=== PATIENT | male | born 1960 | race Hispanic/Latino ===

== ENCOUNTER 2018-12-26 11:30 | Inpatient (IN) | payer MEDICAID, OTHER ==
[2018-12-26 11:31] VITALS: BMI 26.5
[2018-12-26 12:37] LABS: BASO % 0.5 % (0.0-2.0); EOS % 1.2 % (0.0-4.0); HEMOGLOBIN 15.6 g/dL (12.0-18.0); LYMPH # 0.1 K/uL (1.0-4.3); LYMPH % 17.1 % (20.0-40.0); MEAN CORPUSCULAR HEMOGLOBIN 31.4 pg (27.0-31.0); MONO % 0.8 % (0.0-10.0); NEUT # 0.6 K/uL (1.8-7.0); NEUT % 80.4 % (50.0-75.0); NRBC % 0.8 % (0.0-2.0); RBC 4.96 Mil/uL (4.40-5.90); RED CELL DISTRIBUTION WIDTH 14.9 % (11.5-14.5)
[2018-12-26 12:45] LABS: MEAN CELL VOLUME 92.2 fL (80.0-94.0); WHITE BLOOD COUNT 0.7 K/uL (4.8-10.8)
[2018-12-26 12:55] LABS: ALBUMIN 4.2 g/dL (3.5-5.0); ALT/SGPT 57 U/L (21-72); AST/SGOT 110 U/L (17-59); BLOOD UREA NITROGEN 20 mg/dL (9-20); CALCIUM 9.7 mg/dl (8.6-10.4); GFR NON-AFRICAN AMERICAN > 60
[2018-12-26 12:58] LABS: VENOUS BLOOD GAS BASE EXCESS 0.6 mmol/L (0.0-2.0); VENOUS BLOOD GAS PCO2 52 mmHg (40-60); VENOUS BLOOD GAS PO2 21 mm/Hg (30-55); VENOUS BLOOD PH 7.33 (7.32-7.43)
[2018-12-26 13:05] LABS: B-TYPE NATRIURETIC PEPTIDE 77.6 pg/mL (0-900)
[2018-12-26 13:05] LABS: SQUAMOUS EPITHIAL 1 /hpf (0-5); URINE BACTERIA OCC (<OCC); URINE BILIRUBIN NEGATIVE (NEGATIVE); URINE BLOOD 1+ (NEGATIVE); URINE CLARITY Clear (Clear); URINE COLOR Yellow (YELLOW); URINE GLUCOSE (UA) NORMAL (Normal); URINE LEUKOCYTE ESTERASE 1+ Leu/uL (Negative); URINE PROTEIN NEGATIVE (NEGATIVE)
[2018-12-26] MEDS ORDERED: Piperacillin/Tazobact 3.375 GM in Sodium Chloride 100 ML IVPB STA (13:06)
[2018-12-26] MEDS ORDERED: Sodium Chloride 0.9% 1,000 ML IV ONE (13:08)
--- NOTE | 2018-12-26 13:12 | RAD ---
HISTORY: Sepsis Patient COMPARISON: Chest x-ray performed 04/06/16 TECHNIQUE: Chest, one view. FINDINGS: LUNGS: Bibasilar atelectasis. No focal consolidation. Please note that chest x-ray has limited sensitivity for the detection of pulmonary masses. PLEURA: No significant pleural effusion identified. No definite pneumothorax . CARDIOVASCULAR: Heart size appears within normal limits. No significant atherosclerotic calcification present. OSSEOUS STRUCTURES: No acute osseous abnormality identified. VISUALIZED UPPER ABDOMEN: Unremarkable. OTHER FINDINGS: None. IMPRESSION: Bibasilar atelectasis.
[2018-12-26] MEDS ORDERED: Piperacillin/Tazobact 3.375 gm 100 ML IVPB ONE (13:16)
[2018-12-26] MEDS ORDERED: Vancomycin 1 GM 1 GM/250 ML BAG IVPB ONE (13:16)
[2018-12-26 13:25] LABS: BARBITURATES, UR NEGATIVE (NEGATIVE); PHENCYCLIDINE, UR NEGATIVE (NEGATIVE)
[2018-12-26 13:54] LABS: BENZODIAZEPINES, UR POSITIVE (NEGATIVE); OPIATES, UR POSITIVE (NEGATIVE)
[2018-12-26] MEDS ORDERED: Sodium Chloride 0.9% 2,000 ML ONE (14:24)
--- NOTE | 2018-12-26 14:38 | C.PDOC ---
History Of Present Illness 58 y/o male brought in by EMS for evaluation of fever and chills. Patient states that he just used a few bags of heroin this morning, and then suddenly became cold. He notes that his left side became very cold. Patient was able to move all extremities. He also began to feel nauseous, and started vomiting in the ED. Patient also complains of pain all over. Rectal temp shows fever. Patient notes he has had a persistent cough since about 1 week ago. Time Seen by Provider: 12/26/18 11:39 Chief Complaint (Nursing): GI Problem History Per: Patient History/Exam Limitations: no limitations Onset/Duration Of Symptoms: Days Current Symptoms Are (Timing): Still Present Past Medical History Reviewed: Historical Data, Nursing Documentation, Vital Signs Vital Signs: Last Vital Signs Temp 102.7 F H 12/26/18 12:30 Pulse 83 12/26/18 14:25 Resp 20 12/26/18 14:25 BP 87/48 L 12/26/18 14:25 Pulse Ox 95 12/26/18 14:25 - Medical History PMH: Back Problems Denies: Diabetes, Hepatitis, HIV, HTN, Seizures, Sexually Transmitted Disease Family History: States: Unknown Family Hx - Social History Hx Alcohol Use: Yes Hx Substance Use: Yes - Immunization History Hx Tetanus Toxoid Vaccination: (unk) Hx Influenza Vaccination: No Hx Pneumococcal Vaccination: (unk) Review Of Systems Except As Marked, All Systems Reviewed And Found Negative. Constitutional: Positive for: Fever, Chills, Other (Body aches) Cardiovascular: Negative for: Chest Pain Respiratory: Positive for: Cough. Negative for: Shortness of Breath Gastrointestinal: Positive for: Nausea, Vomiting, Abdominal Pain. Negative for: Diarrhea Musculoskeletal: Negative for: Neck Pain Neurological: Negative for: Headache, Dizziness Physical Exam - Physical Exam Appears: Other (Appears Ill) Skin: Warm, Dry, Other (Covered in tattoos) Head: Atraumatic, Normacephalic Eye(s): bilateral: Normal Inspection, PERRL, EOMI Nose: Discharge (+ nasal congestion) Oral Mucosa: Moist Throat: Normal, No Erythema, No Exudate Neck: Normal ROM, Supple Chest: Symmetrical Cardiovascular: Rhythm Regular, No Murmur Respiratory: Normal Breath Sounds, No Accessory Muscle Use, No Wheezing, Other (Cough noted) Gastrointestinal/Abdominal: Soft, No Tenderness, No Guarding, No Rebound Extremity: Bilateral: Atraumatic, Normal Color And Temperature, Normal ROM Neurological/Psych: Oriented x3, Normal Speech ED Course And Treatment - Laboratory Results Result Diagrams: 12/28/18 13:26 12/28/18 13:26 Lab Results: pO2 21 mm/Hg (30-55) L 12/26/18 12:55 VBG pH 7.33 (7.32-7.43) 12/26/18 12:55 VBG pCO2 52 mmHg (40-60) 12/26/18 12:55 VBG HCO3 23.6 mmol/L 12/26/18 12:55 VBG Total CO2 29.0 mmol/L (22-28) H 12/26/18 12:55 VBG O2 Sat (Calc) 33.1 % (40-65) L 12/26/18 12:55 VBG Base Excess 0.6 mmol/L (0.0-2.0) 12/26/18 12:55 VBG Potassium 4.5 mmol/L (3.6-5.2) 12/26/18 12:55 Sodium 135.0 mmol/l (132-148) 12/26/18 12:55 Chloride 101.0 mmol/L (98-107) 12/26/18 12:55 Glucose 101 mg/dl (75-110) 12/26/18 12:55 Lactate 3.6 mmol/L (0.7-2.1) H 12/26/18 12:55 D-Dimer, Quantitative 4103 ng/mlDDU (0-243) H 12/26/18 13:41 Troponin I 0.1160 ng/mL (0.00-0.120) 12/26/18 12:30 NT-Pro-B Natriuret Pep 77.6 pg/mL (0-900) 12/26/18 12:30 Total Bilirubin 1.0 mg/dL (0.2-1.3) 12/26/18 12:30 AST 110 U/L (17-59) H 12/26/18 12:30 ALT 57 U/L (21-72) 12/26/18 12:30 Alkaline Phosphatase 220 U/L (38-126) H 12/26/18 12:30 Total Protein 8.3 g/dL (6.3-8.3) 12/26/18 12:30 Albumin 4.2 g/dL (3.5-5.0) 12/26/18 12:30 Globulin 4.1 gm/dL (2.2-3.9) H 12/26/18 12:30 Albumin/Globulin Ratio 1.0 (1.0-2.1) 12/26/18 12:30 Urine Color Yellow (YELLOW) 12/26/18 12:52 Urine Clarity Clear (Clear) 12/26/18 12:52 Urine pH 6.0 (5.0-8.0) 12/26/18 12:52 Ur Specific [place] 1.012 (1.003-1.030) 12/26/18 12:52 Urine Protein Negative mg/dL (NEGATIVE) 12/26/18 12:52 Urine Glucose (UA) Normal mg/dL (Normal) 12/26/18 12:52 Urine Ketones Negative mg/dL (NEGATIVE) 12/26/18 12:52 Urine Blood 1+ (NEGATIVE) H 12/26/18 12:52 Urine Nitrate Negative (NEGATIVE) 12/26/18 12:52 Urine Bilirubin Negative (NEGATIVE) 12/26/18 12:52 Urine Urobilinogen 4.0 mg/dL (0.2-1.0) 12/26/18 12:52 Ur Leukocyte Esterase 1+ Day[place]/uL (Negative) H 12/26/18 12:52 Urine WBC (Auto) 8 /hpf (0-5) H 12/26/18 12:52 Urine RBC (Auto) 7 /hpf (0-3) H 12/26/18 12:52 Ur Squamous Epith Cells 1 /hpf (0-5) 12/26/18 12:52 Urine Bacteria Occ (<OCC) H 12/26/18 12:52 O2 Sat by Pulse Oximetry: 95 Pulse Ox Interpretation: Normal - Other Rad CXR X-Ray: Read By Radiologist Interpretation: Accession No. : [id number]. Patient Name / ID : ELICIA MUIR / [id number]. Exam Date : 12/26/2018 12:41:34 ( Approved ). Study Comment : Sex / Age : M / 58Y. Creator : Anjelica Hernandez MD. Dictator : Anjelica Hernandez MD. Biofuels Production Manager : Instrumentation Tech : Anjelica Hernandez MD. Ap prover2 : Report Date : 12/26/2018 13:09:07. My Comment : . HISTORY: Sepsis Patient. COMPARISON: Chest x-ray performed 04/06/16. TECHNIQUE: Chest, one view. FINDINGS: LUNGS: Bibasilar atelectasis. No focal consolidation. Please note that chest x-ray has limited sensitivity for the detection of pulmonary masses. PLEURA: No significant pleural effusion identified. No definite pneumothorax . CARDIOVASCULAR: Heart size appears within normal limits. No significant atherosclerotic calcification present. OSSEOUS STRUCTURES: No acute osseous abnormality identified. VISUALIZED UPPER ABDOMEN: Unremarkable. OTHER FINDINGS: None. IMPRESSION: Bibasilar atelectasis. Medical Decision Making Medical Decision Making: Impression: Fever, Heroin abuse Initial Plan: - Blood work - VBG - Urinalysis - Urine culture - Blood culture - EKG - Chest x-ray - 975 mg Tylenol Labs reviewed. WBC 0.7k Lactate 3.6 Sepsis protocol initiated. Added orders for IV fluids, Vanco, Zosyn, and Zofran. Also given 30 mg IV Toradol. On re-examination patient has significant RUQ tenderness. Considering US for gall bladder disease. Spoke with net web developer Dr. Barrera, who will evaluate patient in the ED. 14:33 D-dimer elevated, > 4000 Added on CTA chest. Patient given additional liters of IVF hydration. Discussed case with Dr. Rodriguez, will admit patient under his service to the ICU. Dr. Barrera assumed care of the patient at 14:56. Assessment was made that patient is too unstable to travel for ultrasound or CT scan. Patient is persistently hypotensive despite 3L IV fluids. Levophed started. Disposition Discussed With : Jarett Rodriguez - Disposition Disposition: HOSPITALIZED Disposition Time: 14:52 Condition: CRITICAL - Clinical Impression Clinical Impression: Sepsis, Opioid abuse, Leukopenia - Scribe Statement The provider has reviewed the documentation as recorded by the Nickolas Pelayo Provider Attestation: All medical record entries made by the Nickolas were at my direction and personally dictated by me. I have reviewed the chart and agree that the record accurately reflects my personal performance of the history, physical exam, medical decision making, and the department course for this patient. I have also personally directed, reviewed, and agree with the discharge instructions and disposition. Decision To Admit - Pt Status Changed To: Hospital Disposition Of: Inpatient - Admit Certification Admit to Inpatient:: After my assessment, the patient will require hospitalization for at least two midnights. This is because of the severity of symptoms shown, intensity of services needed, and/or the medical risk in this patient being treated as an outpatient. - InPatient: Physician Admission Certification:: critical patient, sepsis, opioid abuse - . Bed Request Type: ICU Admitting Physician: Jarett Rodriguez Patient Diagnosis: Sepsis, Opioid abuse, Leukopenia
[2018-12-26] MEDS ORDERED: Sodium Chloride 0.9% 250 ML IV ONE (14:53)
[2018-12-26 15:23] LABS: VENOUS BLOOD GAS BASE EXCESS -5.2 mmol/L (0.0-2.0); VENOUS BLOOD GAS PCO2 40 mmHg (40-60); VENOUS BLOOD GAS PO2 57 mm/Hg (30-55); VENOUS BLOOD PH 7.32 (7.32-7.43)
[2018-12-26] MEDS ORDERED: Acetaminophen IV 1,000 MG in Premixed IV 1 EA IV ONE (16:34)
[2018-12-26] MEDS ORDERED: Multivitamin (MVI) 10 ML, Thiamine 100 MG, Folic Acid 1 MG in Sodium Chloride 0.9% 1,00... IV ONE ×2 (18:44→19:21)
--- NOTE | 2018-12-26 18:50 | CP.PCM.CON ---
<Elissa Wakefield - Last Filed: 12/26/18 18:32> History of Present Illness - History of Present Illness History of Present Illness: Pt is a 58 y/o male with hx of HIV (questionable), Hep C, ETOH abuser, Active Heroine abuser, Liver Cirrhosis, previously incarcerated brought to ER by sister who reports that she found him at her neighbors house shaking and "looked ill" and minimally responsive. She believes he was shooting up heroine. As per EMS, pt was given Narcan and become more alert. On ED arrival he was complaining of abdominal pain and vomiting. Also complaining of cough. Noted to be septic shock --hypothermic, WBC 0.7, hypotensive unresponsive to fluids and started on levophed. Most of history obtained through sister and mother who are at bedside. They report that he uses heroine often and drinks alcohol regularly often going into withdrawal if he doesn't drink for a while. Past Patient History - Infectious Disease Hx of Infectious Diseases: None - Past Social History Smoking Status: Heavy Smoker > 10 Cigarettes Daily - CARDIAC Hx Hypertension: No - PULMONARY Hx Tuberculosis: No - NEUROLOGICAL Hx Seizures: No - HEMATOLOGICAL/ONCOLOGICAL Hx Human Immunodeficiency Virus (HIV): No - MUSCULOSKELETAL/RHEUMATOLOGICAL Hx Falls: No - GENITOURINARY/GYNECOLOGICAL Hx Sexually Transmitted Disorders: No - PSYCHIATRIC Hx Substance Use: Yes - SURGICAL HISTORY Hx Surgeries: Yes Other/Comment: L eye - ANESTHESIA Hx Anesthesia: No Hx Anesthesia Reactions: No Has any member of the family had a problem w/ anesthesia?: No (as per patient's mother) Meds Allergies/Adverse Reactions: Allergies Allergy/AdvReac Type Severity Reaction Status Date / Time No Known Allergies Allergy Verified 12/26/18 11:44 - Medications Medications: Current Medications Norepinephrine Bitartrate 4 mg (/ Dextrose) 254 mls @ 15.24 mls/hr IV .[id number] PRN; Protocol PRN Reason: TITRATE PER MD ORDER Last Admin: 12/26/18 15:28 Dose: 4 mcg/min, 15.24 mls/hr Physical Exam - Constitutional Appears: Toxic, Older Than Stated Age - Eye Exam Eye Exam: EOMI, PERRL - ENT Exam ENT Exam: Mucous Membranes Dry - Respiratory Exam Respiratory Exam: Clear to Auscultation Bilateral. absent: Rales, Wheezes - Cardiovascular Exam Cardiovascular Exam: Tachycardia, +S1, +S2. absent: Systolic Murmur - GI/Abdominal Exam GI & Abdominal Exam: Normal Bowel Sounds, Soft, Tenderness (RUQ on deep palpation, [place] negative) - Extremities Exam Extremities exam: Positive for: normal capillary refill, pedal pulses present. Negative for: pedal edema - Neurological Exam Neurological exam: Alert (lethargic, responds to name only) - Psychiatric Exam Psychiatric exam: Flat Affect - Skin Skin Exam: Normal Color Results - Vital Signs Recent Vital Signs: Last Vital Signs Temp 102.3 F H 12/26/18 14:45 Pulse 68 12/26/18 17:44 Resp 17 12/26/18 17:44 BP 102/66 12/26/18 17:44 Pulse Ox 97 12/26/18 17:44 - Labs Result Diagrams: 12/26/18 12:30 12/26/18 12:30 Labs: Laboratory Results - last 24 hr 12/26/18 12/26/18 12/26/18 12:30 12:30 12:52 WBC 0.7 L* D RBC 4.96 Hgb 15.6 Hct 45.7 MCV 92.2 D MCH 31.4 H MCHC 34.0 RDW 14.9 H Plt Count 80 L D MPV 8.0 Neut % (Auto) 80.4 H Lymph % (Auto) 17.1 L Bureau % (Auto) 0.8 Eos % (Auto) 1.2 Baso % (Auto) 0.5 Neut # (Auto) 0.6 L Lymph # (Auto) 0.1 L Bureau # (Auto) 0.0 Eos # (Auto) 0.0 Baso # (Auto) 0.0 Differential Comment Smear Path Review D-Dimer, Quantitative pO2 VBG pH VBG pCO2 VBG HCO3 VBG Total CO2 VBG O2 Sat (Calc) VBG Base Excess VBG Potassium Glucose Lactate Sodium 136 Potassium 4.2 Chloride 99 Carbon Dioxide 22 Anion Gap 19 BUN 20 Creatinine 0.7 L Est GFR ( Amer) > 60 Est GFR (Non-Af Amer) > 60 Random Glucose 102 Calcium 9.7 Phosphorus 2.9 Magnesium 1.7 Total Bilirubin 1.0 AST 110 H ALT 57 Alkaline Phosphatase 220 H Troponin I 0.1160 NT-Pro-B Natriuret Pep 77.6 Total Protein 8.3 Albumin 4.2 Globulin 4.1 H Albumin/Globulin Ratio 1.0 Venous Blood Potassium Urine Color Urine Clarity Urine pH Ur Specific [place] Urine Protein Urine Glucose (UA) Urine Ketones Urine Blood Urine Nitrate Urine Bilirubin Urine Urobilinogen Ur Leukocyte Esterase Urine WBC (Auto) Urine RBC (Auto) Ur Squamous Epith Cells Urine Bacteria Urine Opiates Screen Positive H Urine Methadone Screen Negative Ur Barbiturates Screen Negative Ur Phencyclidine Scrn Negative Ur Amphetamines Screen Negative U Benzodiazepines Scrn Positive U Oth Cocaine Metabols Negative U Cannabinoids Screen Positive H Alcohol, Quantitative < 10 12/26/18 12/26/18 12/26/18 12:52 12:55 13:41 WBC RBC Hgb Hct MCV MCH MCHC RDW Plt Count MPV Neut % (Auto) Lymph % (Auto) Bureau % (Auto) Eos % (Auto) Baso % (Auto) Neut # (Auto) Lymph # (Auto) Bureau # (Auto) Eos # (Auto) Baso # (Auto) Differential Comment Smear Path Review D-Dimer, Quantitative 4103 H pO2 21 L VBG pH 7.33 VBG pCO2 52 VBG HCO3 23.6 VBG Total CO2 29.0 H VBG O2 Sat (Calc) 33.1 L VBG Base Excess 0.6 VBG Potassium 4.5 Glucose 101 Lactate 3.6 H Sodium 135.0 Potassium Chloride 101.0 Carbon Dioxide Anion Gap BUN Creatinine Est GFR ( Amer) Est GFR (Non-Af Amer) Random Glucose Calcium Phosphorus Magnesium Total Bilirubin AST ALT Alkaline Phosphatase Troponin I NT-Pro-B Natriuret Pep Total Protein Albumin Globulin Albumin/Globulin Ratio Venous Blood Potassium 4.5 Urine Color Yellow Urine Clarity Clear Urine pH 6.0 Ur Specific [place] 1.012 Urine Protein Negative Urine Glucose (UA) Normal Urine Ketones Negative Urine Blood 1+ H Urine Nitrate Negative Urine Bilirubin Negative Urine Urobilinogen 4.0 Ur Leukocyte Esterase 1+ H Urine WBC (Auto) 8 H Urine RBC (Auto) 7 H Ur Squamous Epith Cells 1 Urine Bacteria Occ H Urine Opiates Screen Urine Methadone Screen Ur Barbiturates Screen Ur Phencyclidine Scrn Ur Amphetamines Screen U Benzodiazepines Scrn U Oth Cocaine Metabols U Cannabinoids Screen Alcohol, Quantitative 12/26/18 15:20 WBC RBC Hgb Hct MCV MCH MCHC RDW Plt Count MPV Neut % (Auto) Lymph % (Auto) Bureau % (Auto) Eos % (Auto) Baso % (Auto) Neut # (Auto) Lymph # (Auto) Bureau # (Auto) Eos # (Auto) Baso # (Auto) Differential Comment Smear Path Review D-Dimer, Quantitative pO2 57 H VBG pH 7.32 VBG pCO2 40 VBG HCO3 20.6 VBG Total CO2 21.8 L VBG O2 Sat (Calc) 91.1 H VBG Base Excess -5.2 L VBG Potassium 2.7 L Glucose 94 Lactate 1.8 Sodium 136.0 Potassium Chloride 108.0 H Carbon Dioxide Anion Gap BUN Creatinine Est GFR ( Amer) Est GFR (Non-Af Amer) Random Glucose Calcium Phosphorus Magnesium Total Bilirubin AST ALT Alkaline Phosphatase Troponin I NT-Pro-B Natriuret Pep Total Protein Albumin Globulin Albumin/Globulin Ratio Venous Blood Potassium 2.7 L Urine Color Urine Clarity Urine pH Ur Specific [place] Urine Protein Urine Glucose (UA) Urine Ketones Urine Blood Urine Nitrate Urine Bilirubin Urine Urobilinogen Ur Leukocyte Esterase Urine WBC (Auto) Urine RBC (Auto) Ur Squamous Epith Cells Urine Bacteria Urine Opiates Screen Urine Methadone Screen Ur Barbiturates Screen Ur Phencyclidine Scrn Ur Amphetamines Screen U Benzodiazepines Scrn U Oth Cocaine Metabols U Cannabinoids Screen Alcohol, Quantitative Assessment & Plan - Assessment and Plan (Free Text) Assessment: Pt is a 58 y/o male with hx of HIV (questionable), Hep C, ETOH abuser, Active Heroine abuser, Liver Cirrhosis, previously incarcerated brought to ER by sister who reports that she found him at her neighbors house shaking and "looked ill" and minimally responsive. She believes he was shooting up heroine. As per EMS, pt was given Narcan and become more alert. On ED arrival he was complaining of abdominal pain and vomiting. Also complaining of cough. Noted to be septic shock , Code Sepsis initiated--hypothermic, WBC 0.7, hypotensive unresponsive to fluids and started on levophed. Most of history obtained through sister and mother who are at bedside. They report that he uses heroine often and drinks alcohol regularly often going into withdrawal if he doesn't drink for a while. Neuro - Alert, oriented to name only - Likely opiod overdose vs metabolic encephalopathy - Neuro checks q2h - Hx of ETOH abuse, CIWA 0 on presentation. Watch ffor withdrawals DT - Banana bag Cardio - Septic shock, BP in 70's in ED, currently on Levophed. Wean as tolerated, maintain map>65 - Cardiac monitoring - No known cardiac history - D Dimer elevated; CT [place] pending GI - Liver Cirrhosis - ASt 110 ALT 257, Alcoholic pattern - Abdominal US ordered - Sister states pt has liver mass? Renal - BUN/Crea stable - Monitor UP Heme - H/H stbale - Platelets 80 ID - Neutropenic fever - Lactate 3.6 - WBC 0.7 (ANC 500) - C/W Vanco Zosyn - F/U Bcx, Ucx - HIV, Hep C sent Lines: Right femoral placed ton 12/[address] Carolynn Wakefield, PGY2 <Corbin Barrera - Last Filed: 12/26/18 19:23> Meds - Medications Medications: Current Medications Norepinephrine Bitartrate 4 mg (/ Dextrose) 254 mls @ 15.24 mls/hr IV .[id number] PRN; Protocol PRN Reason: TITRATE PER MD ORDER Last Admin: 12/26/18 15:28 Dose: 4 mcg/min, 15.24 mls/hr Piperacillin Sod/Tazobactam Sod (Zosyn 3.375 Gm Iv Premix) 3.375 gm in 50 mls @ 100 mls/hr IVPB Q8H SABI; Protocol Vancomycin/Sodium Chloride (Vancomycin 1 Gm/Ns 200 Ml) 1 gm in 200 mls @ 133 mls/hr IVPB Q12H SABI; Protocol Stop: 01/01/19 09:01 Pantoprazole Sodium (Protonix Inj) 40 mg IVP DAILY SABI Results - Vital Signs Recent Vital Signs: Last Vital Signs Temp 102.3 F H 12/26/18 14:45 Pulse 65 12/26/18 18:37 Resp 19 12/26/18 18:37 BP 101/67 12/26/18 18:37 Pulse Ox 96 12/26/18 18:37 - Labs Result Diagrams: 12/26/18 12:30 12/26/18 12:30 Labs: Laboratory Results - last 24 hr 12/26/18 12/26/18 12/26/18 12:30 12:30 12:52 WBC 0.7 L* D RBC 4.96 Hgb 15.6 Hct 45.7 MCV 92.2 D MCH 31.4 H MCHC 34.0 RDW 14.9 H Plt Count 80 L D MPV 8.0 Neut % (Auto) 80.4 H Lymph % (Auto) 17.1 L Bureau % (Auto) 0.8 Eos % (Auto) 1.2 Baso % (Auto) 0.5 Neut # (Auto) 0.6 L Lymph # (Auto) 0.1 L Bureau # (Auto) 0.0 Eos # (Auto) 0.0 Baso # (Auto) 0.0 Differential Comment Smear Path Review D-Dimer, Quantitative pO2 VBG pH VBG pCO2 VBG HCO3 VBG Total CO2 VBG O2 Sat (Calc) VBG Base Excess VBG Potassium Glucose Lactate Sodium 136 Potassium 4.2 Chloride 99 Carbon Dioxide 22 Anion Gap 19 BUN 20 Creatinine 0.7 L Est GFR ( Amer) > 60 Est GFR (Non-Af Amer) > 60 Random Glucose 102 Calcium 9.7 Phosphorus 2.9 Magnesium 1.7 Total Bilirubin 1.0 AST 110 H ALT 57 Alkaline Phosphatase 220 H Troponin I 0.1160 NT-Pro-B Natriuret Pep 77.6 Total Protein 8.3 Albumin 4.2 Globulin 4.1 H Albumin/Globulin Ratio 1.0 Venous Blood Potassium Urine Color Urine Clarity Urine pH Ur Specific [place] Urine Protein Urine Glucose (UA) Urine Ketones Urine Blood Urine Nitrate Urine Bilirubin Urine Urobilinogen Ur Leukocyte Esterase Urine WBC (Auto) Urine RBC (Auto) Ur Squamous Epith Cells Urine Bacteria Urine Opiates Screen Positive H Urine Methadone Screen Negative Ur Barbiturates Screen Negative Ur Phencyclidine Scrn Negative Ur Amphetamines Screen Negative U Benzodiazepines Scrn Positive U Oth Cocaine Metabols Negative U Cannabinoids Screen Positive H Alcohol, Quantitative < 10 12/26/18 12/26/18 12/26/18 12:52 12:55 13:41 WBC RBC Hgb Hct MCV MCH MCHC RDW Plt Count MPV Neut % (Auto) Lymph % (Auto) Bureau % (Auto) Eos % (Auto) Baso % (Auto) Neut # (Auto) Lymph # (Auto) Bureau # (Auto) Eos # (Auto) Baso # (Auto) Differential Comment Smear Path Review D-Dimer, Quantitative 4103 H pO2 21 L VBG pH 7.33 VBG pCO2 52 VBG HCO3 23.6 VBG Total CO2 29.0 H VBG O2 Sat (Calc) 33.1 L VBG Base Excess 0.6 VBG Potassium 4.5 Glucose 101 Lactate 3.6 H Sodium 135.0 Potassium Chloride 101.0 Carbon Dioxide Anion Gap BUN Creatinine Est GFR ( Amer) Est GFR (Non-Af Amer) Random Glucose Calcium Phosphorus Magnesium Total Bilirubin AST ALT Alkaline Phosphatase Troponin I NT-Pro-B Natriuret Pep Total Protein Albumin Globulin Albumin/Globulin Ratio Venous Blood Potassium 4.5 Urine Color Yellow Urine Clarity Clear Urine pH 6.0 Ur Specific [place] 1.012 Urine Protein Negative Urine Glucose (UA) Normal Urine Ketones Negative Urine Blood 1+ H Urine Nitrate Negative Urine Bilirubin Negative Urine Urobilinogen 4.0 Ur Leukocyte Esterase 1+ H Urine WBC (Auto) 8 H Urine RBC (Auto) 7 H Ur Squamous Epith Cells 1 Urine Bacteria Occ H Urine Opiates Screen Urine Methadone Screen Ur Barbiturates Screen Ur Phencyclidine Scrn Ur Amphetamines Screen U Benzodiazepines Scrn U Oth Cocaine Metabols U Cannabinoids Screen Alcohol, Quantitative 12/26/18 15:20 WBC RBC Hgb Hct MCV MCH MCHC RDW Plt Count MPV Neut % (Auto) Lymph % (Auto) Bureau % (Auto) Eos % (Auto) Baso % (Auto) Neut # (Auto) Lymph # (Auto) Bureau # (Auto) Eos # (Auto) Baso # (Auto) Differential Comment Smear Path Review D-Dimer, Quantitative pO2 57 H VBG pH 7.32 VBG pCO2 40 VBG HCO3 20.6 VBG Total CO2 21.8 L VBG O2 Sat (Calc) 91.1 H VBG Base Excess -5.2 L VBG Potassium 2.7 L Glucose 94 Lactate 1.8 Sodium 136.0 Potassium Chloride 108.0 H Carbon Dioxide Anion Gap BUN Creatinine Est GFR ( Amer) Est GFR (Non-Af Amer) Random Glucose Calcium Phosphorus Magnesium Total Bilirubin AST ALT Alkaline Phosphatase Troponin I NT-Pro-B Natriuret Pep Total Protein Albumin Globulin Albumin/Globulin Ratio Venous Blood Potassium 2.7 L Urine Color Urine Clarity Urine pH Ur Specific [place] Urine Protein Urine Glucose (UA) Urine Ketones Urine Blood Urine Nitrate Urine Bilirubin Urine Urobilinogen Ur Leukocyte Esterase Urine WBC (Auto) Urine RBC (Auto) Ur Squamous Epith Cells Urine Bacteria Urine Opiates Screen Urine Methadone Screen Ur Barbiturates Screen Ur Phencyclidine Scrn Ur Amphetamines Screen U Benzodiazepines Scrn U Oth Cocaine Metabols U Cannabinoids Screen Alcohol, Quantitative Attending/Attestation - Attestation I have personally seen and examined this patient.: Yes I have fully participated in the care of the patient.: Yes I have reviewed all pertinent clinical information: Yes Notes (Text): 12/26/18 19:22 I have seen and examined the patient. Medical records, lab studies, and imaging were reviewed by me and a management plan was formulated on multidisciplinary rounds with resident Dr. Wakefield. I agree with their documented assessment and plan. Patient is in neutropenic septic shock, now on levophed, vanco and zosyn. Source of infection is not determined. HIV non-compliant with meds. ID consulted. Critical Care Time 35 minutes. Multi-disciplinary rounds were performed with house staff, nursing, speech therapy, respiratory therapy, pharmacy and nutrition with integrated input from the primary team/attending and other consulting services. The documented time is cumulative and includes review of patient data/exams/labs/chart review and examination of the patient on rounds and throughout the day; time is exclusive of any procedures or teaching time.
--- NOTE | 2018-12-26 18:56 | PCM.PROC ---
<Elissa Wakefield - Last Filed: 12/26/18 18:50> Procedures Attestation:: I certify that I have explained the specified Operation(s) or Procedure(s), risks, benefits and reasonable alternatives to the Patient and/or other person responsible. The opportunity was given to ask questions and all questions answered - Central Line Placement Right Femoral Triple Lumen Catheter Aseptic technique was employed throughout the procedure: Hand Hygiene done prior to procedure, Full sterile barriers (mask, hair cover, sterile gown, sterile gloves), Full body sterile drape, Chloraprep Antiseptic: 30 second prep for IJ or SC sites, Chloraprep Antiseptic: 2 minute prep for Femoral CVP Time Out Performed: Yes Pt. Placed on Pulse Ox Monitor: Yes Central Line Prep: Chlorhexidine-Alcohol Combination Local Anesthesia Used: Lidocaine 1% Amount of Anesthesia Used (mls): 5 Ultrasound Used for Placement: Yes Central Line Lumen Inserted: triple Central Line Length: 20 cm Post Procedure: Sutured in Place, Good Blood Return, All Ports Aspirated, Flushed, Capped, Sterile Dressing Applied Secured by: Securement device Post procedure dressing: Gauze, Clear vapor permeable, Chlorhexidine disc (Biopatch) Post Procedure X-Ray: No Patient Tolerated Procedure: Well, No Complications Immediate Complications: Other (Initially attempted Right IJ but pt was noted to have significant vessel stenosis. For this reason, decision was made to get central line in right femoral vein which was noted to have significant branching but second attempt successul. Overall, pt tolerated procedure well and there were no significant complications.) Additional Comments: Procedure was performed under direct supervision of Dr. Barrera <Corbin Barrera - Last Filed: 12/26/18 19:21> Attending/Attestation - Attestation I have personally seen and examined this patient.: Yes I have fully participated in the care of the patient.: Yes I have reviewed all pertinent clinical information, including history, physical exam and plan: Yes Notes (Text): 12/26/18 19:18 I participated, supervised and assisted in this procedure with student physician Dr. Wakefield. The patient tolerated the procedure well despite complications. Patient has significant branching in the femoral vessel which made passage of the guidewire difficult. He also had some type of stenosis or tortuous vasculature in the RIJ.
--- NOTE | 2018-12-26 19:14 | RAD ---
Date of service: 12/26/2018 HISTORY: s/p R femoral central line placement COMPARISON: 12/26/2018. FINDINGS: LUNGS: The lungs are well inflated. There is moderate pulmonary venous congestion and interstitial pulmonary edema. PLEURA: No pleural effusions or pneumothorax. CARDIOVASCULAR: Moderate cardiomegaly and prominent central vasculature. There are aortic atherosclerotic calcifications present. OSSEOUS STRUCTURES: Within normal limits for the patient's age. VISUALIZED UPPER ABDOMEN: Normal. OTHER FINDINGS: None. IMPRESSION: Findings are consistent with worsening pulmonary venous congestion and interstitial pulmonary edema.
--- NOTE | 2018-12-26 19:18 | PCM.SEPTIC ---
<Elissa Wakefield - Last Filed: 12/26/18 19:09> Sepsis Progress Note - Reassessment Type Date of Evaluation: 12/26/18 Time of Evaluation: 17:35 Reassessment Type: Non-invasive reassessment - Non Invasive Reassessment Were the most recent vital sign reviewed: Yes Vital Sign (Latest): Temp Pulse Resp BP Pulse Ox 102.3 F H 65 19 101/67 96 12/26/18 14:45 12/26/18 18:37 12/26/18 18:37 12/26/18 18:37 12/26/18 18:37 Cardiovascular: Yes: Tachycardia Respiratory: Yes: Normal Breath Sounds. No: Accessory Muscle Use, Crackles, Respiratory Distress Capillary Refill: Normal (Less than 2 sec) Pulses: Normal Radial, Normal Dorsalis Pedis, Normal Posterior Tibialis Skin: Diaphoretic - Invasive Reassessment (complete 2 of 4) Was a Central Venous Pressure Measurement obtained within 6 Hours after the presentation of septic shock: No Was a central venous oxygen measurement obtained within 6 hours after the presentation of septic shock: No Was a bedside cardiovascular ultrasound performed within 6 hours after the presentation of septic shock: No Was a passive leg raise performed or was a fluid challenge performed within 6 hrs of the initial fluid bolus: No Fluid Challenge performed: Yes <Corbin Barrera - Last Filed: 12/26/18 19:21> Sepsis Progress Note - Non Invasive Reassessment Vital Sign (Latest): Temp Pulse Resp BP Pulse Ox 102.3 F H 65 19 101/67 96 12/26/18 14:45 12/26/18 18:37 12/26/18 18:37 12/26/18 18:37 12/26/18 18:37 Attending/Attestation - Attestation I have personally seen and examined this patient.: Yes I have fully participated in the care of the patient.: Yes I have reviewed all pertinent clinical information, including history, physical exam and plan: Yes
[2018-12-26 20:09] LABS: INR 1.2; PROTHROMBIN TIME 13.6 SECONDS (9.7-12.2)
[2018-12-26 20:13] LABS: ABG ALLEN TEST POS; ARTERIAL BLOOD GAS HCO3 20.7 mmol/L (21-28); ARTERIAL BLOOD GAS O2 SAT 99.1 % (95-98); ARTERIAL BLOOD GAS PCO2 34 mm/Hg (35-45); ARTERIAL BLOOD GAS PH 7.36 (7.35-7.45); ARTERIAL BLOOD GAS PO2 103 mm/Hg (80-100); ARTERIAL BLOOD GAS TCO2 20.2 mmol/L (22-28)
[2018-12-26] MEDS ORDERED: Iodixanol 320 MG/ML 100 ML BOTTLE IV ONE (20:31)
[2018-12-26 20:48] LABS: HEPATITIS A IGM NEGATIVE (NEGATIVE); HEPATITIS B CORE AB NEGATIVE (NEGATIVE)
[2018-12-26 21:01] LABS: HEPATITIS B SURFACE AG Negative (NEGATIVE)
[2018-12-26 21:11] LABS: HEPATITIS C ANTIBODY REACTIVE (NEGATIVE)
[2018-12-26] MEDS: Piperacill/Tazo 3.375gm in Dex 3.375 GM/50 ML BAG IVPB SCH (22:00)
--- NOTE | 2018-12-26 22:13 | US ---
Date of service: 12/26/2018 HISTORY: URQ pain, sepsis COMPARISON: None. TECHNIQUE: Sonographic evaluation of the abdomen. FINDINGS: LIVER: Measures 20.6 cm. Normal echogenicity of the liver parenchyma. No mass. No intrahepatic bile duct dilatation. GALLBLADDER: There are no gallstones or pericholecystic fluid. There is diffuse gallbladder wall thickening which is likely secondary to systemic disease. The sonographic Donovan's sign is negative. COMMON BILE DUCT: Measures 4.5 mm. No stones. No dilatation. PANCREAS: Unremarkable as visualized. No mass. No ductal dilatation. RIGHT KIDNEY: Measures 13.4cm. Normal echogenicity. There is mild fullness in the collecting system. No calculus, mass, or hydronephrosis. LEFT KIDNEY: Measures 12.0cm. Normal echogenicity. There are nonobstructing stones in the mid polar region which measures 6 mm and 9 mm. No mass, or hydronephrosis. SPLEEN: Enlarged and measures 18.6 cm. Homogeneous echotexture. AORTA: No aneurysmal dilatation. IVC: Unremarkable. OTHER FINDINGS: There is small abdominal ascites. IMPRESSION: 1. Moderate hepatosplenomegaly. 2. Small abdominal ascites. 3. Subcentimeter nonobstructing stone in the left interpolar region, the larger measures 9 mm.
[2018-12-27] MEDS: Piperacill/Tazo 3.375gm in Dex 3.375 GM/50 ML BAG IVPB SCH ×3 (04:40→21:21)
[2018-12-27 06:31] LABS: BASO % 0.2 % (0.0-2.0); LYMPH # 0.4 K/uL (1.0-4.3); LYMPH % 4.2 % (20.0-40.0); MEAN CELL VOLUME 91.5 fL (80.0-94.0); MEAN CORPUSCULAR HEMOGLOBIN 31.3 pg (27.0-31.0); MEAN CORPUSCULAR HGB CONC 34.2 g/dL (33.0-37.0); MEAN PLATELET VOLUME 8.8 fL (7.2-11.7); MONO # 0.4 K/uL (0.0-0.8); MONO % 4.2 % (0.0-10.0); NEUT # 9.2 K/uL (1.8-7.0); NEUT % 91.4 % (50.0-75.0); RBC 4.29 Mil/uL (4.40-5.90); RED CELL DISTRIBUTION WIDTH 15.3 % (11.5-14.5)
[2018-12-27 06:50] LABS: ALB/GLOB RATIO 0.9 (1.0-2.1); ALT/SGPT 60 U/L (21-72); AST/SGOT 84 U/L (17-59); BLOOD UREA NITROGEN 21 mg/dL (9-20); CALCIUM 8.5 mg/dl (8.6-10.4); GFR NON-AFRICAN AMERICAN > 60
[2018-12-27 06:54] LABS: WHITE BLOOD COUNT 10.1 K/uL (4.8-10.8)
[2018-12-27 06:56] LABS: PLATELET COUNT 58 K/uL (130-400)
[2018-12-27 06:58] LABS: HEMOGLOBIN 13.4 g/dL (12.0-18.0)
[2018-12-27 08:42] LABS: BANDS 26 % (0-2); LYMPHOCYTE 4 % (20-40); MONOCYTE 4 % (0-10); NEUTROPHIL 66 % (50-75); PLATELET ESTIMATE MARKEDLY DECREASED (NORMAL); TOTAL CELLS COUNTED 100
[2018-12-27 08:43] LABS: ANISOCYTOSIS SLIGHT; LARGE PLATELETS PRESENT; POLYCHROMIC SLIGHT; TOXIC GRANULATION PRESENT
[2018-12-27] MEDS ORDERED: Vancomycin 1 gm/NS 200 ml 1 GM/200 ML BAG IVPB SCH (09:00)
[2018-12-27] MEDS ORDERED: Lactated Ringer's 1,000 ML IV SCH (09:00)
--- NOTE | 2018-12-27 09:49 | CT ---
Date of service: 12/26/2018 PROCEDURE: CT Chest with contrast (Pulmonary Angiogram) HISTORY: cough, SOB, elevated DDimer COMPARISON: Plain radiograph performed earlier the same day. TECHNIQUE: Axial computed tomography images were obtained of the chest in the pulmonary arterial phase of enhancement. Coronal and sagittal reformatted images were created and reviewed. Intravenous contrast dose: 100 mL Visipaque 320 Radiation dose: Total exam DLP = 623.07 mGy-cm. This CT exam was performed using one or more of the following dose reduction techniques: Automated exposure control, adjustment of the mA and/or kV according to patient size, and/or use of iterative reconstruction technique. FINDINGS: PULMONARY ARTERIES: There are no filling defects in the pulmonary arteries to suggest acute pulmonary embolism. AORTA: No acute findings. No thoracic aortic aneurysm. There are early aortic atherosclerotic calcifications present. There are calcifications in the left anterior descending coronary artery. LUNGS: The lungs are well inflated. There is subsegmental atelectasis in the lower lobes. No nodule, mass or pulmonary consolidation. PLEURAL SPACES: There are trace effusions. No pneumothorax. HEART: Mild cardiomegaly. No significant pericardial effusion. LYMPH NODES: No pathologic mediastinal or hilar lymphadenopathy. BONES, CHEST WALL: Within normal limits for the patient's age. No fracture or destructive lesion OTHER FINDINGS: There are 2 subcentimeter nonobstructing stones in the upper pole of the left kidney. Incompletely imaged enlarged liver and spleen. IMPRESSION: No CTA evidence for acute pulmonary embolism. Subsegmental atelectasis in the lower lobes, superimposed pneumonia cannot be excluded. Trace pleural effusions. Incompletely imaged hepatosplenomegaly. A preliminary report was provided by [facility]. The final report is tagged to the PA review folder.
[2018-12-27] MEDS: Enoxaparin 40 mg Syringe SC SCH (11:53)
[2018-12-27] MEDS: Multiple Vitamins Tab PO SCH (11:56)
--- NOTE | 2018-12-27 14:33 | CP.PCM.CON ---
History of Present Illness - History of Present Illness History of Present Illness: 58 y/o male brought in by EMS for evaluation of fever and chills. Patient is an active IV drug user who recently shot several bags of heroin into his veins He is c/o of withdrawl symptoms He also has cough but denies chest pain ID consulted for Gram neg sepsis T - Medical History PMH: Back Problems Denies: Diabetes, Hepatitis, HIV, HTN, Seizures, Sexually Transmitted Disease Family History: States: Unknown Family Hx Review of Systems - Review of Systems All systems: reviewed and no additional remarkable complaints except - Constitutional Constitutional: As Per HPI - EENT Eyes: absent: As Per HPI, Blind Spots, Blurred Vision, Change in Vision, Decreased Night Vision, Diplopia, Discharge, Dry Eye, Exophthalmos, Floaters, Irritation, Itchy Eyes, Loss of Peripheral Vision, Pain, Photophobia, Requires Corrective Lenses, Sees Flashes, Spots in Vision, Tunnel Vision, Other Visual Disturbances, Loss of Vision, Other Ears: absent: As Per HPI, Decreased Hearing, Ear Discharge, Ear Pain, Tinnitus, Abnormal Hearing, Disequilibrium, Dizziness, Other Nose/Mouth/Throat: absent: As Per HPI, Epistaxis, Nasal Congestion, Nasal Discharge, Nasal Obstruction, Nasal Trauma, Nose Pain, Post Nasal Drip, Sinus Pain, Sinus Pressure, Bleeding Gums, Change in Voice, Dental Pain, Dry Mouth, Dysphagia, Halitosis, Hoarsness, Lip Swelling, Mouth Lesions, Mouth Pain, Odynophagia, Sore Throat, Throat Swelling, Tongue Swelling, Facial Pain, Neck Pain, Neck Mass, Other - Cardiovascular Cardiovascular: absent: As Per HPI, Acrocyanosis, Chest Pain, Chest Pain at Rest, Chest Pain with Activity, Claudication, Diaphoresis, Dyspnea, Dyspnea on Exertion, Edema, Irregular Heart Rhythm, Pain Radiating to Arm/Neck/Jaw, Leg Edema, Leg Ulcers, Lightheadedness, Orthopnea, Palpitations, Paroxysmal Nocturnal Dyspnea, Pedal Edema, Radiating Pain, Rapid Heart Rate, Slow Heart Rate, Syncope, Other - Respiratory Respiratory: As Per HPI - Gastrointestinal Gastrointestinal: absent: As Per HPI, Abdominal Pain, Belching, Bloating, Change in Bowel Habits, Change in Stool Character, Coffee Ground Emesis, Constipation, Cramping, Diarrhea, Dyspepsia, Dysphagia, Early Satiety, Excessive Flatus, Fecal Incontinence, Heartburn, Hematemesis, Hematochezia, Loose Stools, Melena, Nausea, Odynophagia, Temesmus, Vomiting, Other - Genitourinary Genitourinary: absent: As Per HPI, Change in Urinary Stream, Difficulty Urin ating, Dysuria, Flank Pain, Hematuria, Pyuria, Nocturia, Urinary Incontinence, Urinary Frequency, Urinary Hesitance, Urinary Urgency, Voiding Freq/Small Amts, Freq UTI, Hx Renal/Bladder Calculi, Hx /Renal Surgery, Bladder Distension, Other - Musculoskeletal Musculoskeletal: absent: As Per HPI, Abnormal Gait, Arthralgias, Atrophy, Back Pain, Deformity, Joint Swelling, Limited Range of Motion, Loss of Height, Muscle Cramps, Muscle Weakness, Myalgias, Neck Pain, Numbness, Radiating Pain into Limb, Stiffness, Tingling, Other - Integumentary Integumentary: absent: As Per HPI, Acne, Alopecia, Bleeding Lesions, Change in Hair, Change in Nails, Change in Pigmentation, Changing Lesions, Dry Skin, Erythema, Furuncle, Hirsutism, Lesions, New Lesions, Non-Healing Lesions, Photosensitivity, Pruritus, Rash, Skin Pain, Skin Ulcer, Sores, Striae, Swelling, Unusual Bruising, Wounds, Jaundice, Other - Neurological Neurological: As Per HPI - Psychiatric Psychiatric: absent: As Per HPI, Abnormal Sleep Pattern, Anhedonia, Anxiety, Auditory Hallucinations, Behavioral Changes, Change in Appetite, Change in Libido, Confusion, Depression, Difficulty Concentrating, Hallucinations, Homicidal Ideation, Hopelessness, Irritability, Memory Loss, Mood Swings, Panic Attacks, Paranoia, Suicidal Ideation, Visual Hallucinations, Tactile Hallucinations, Other - Endocrine Endocrine: absent: As Per HPI, Change in Body Appearance, Change in Libido, Cold Intolorance, Deepening of Voice, Excessive Sweating, Fatigue, Flushing, Heat Intolorance, Increase in Ring/Shoe/Hat Size, Palpitations, Polydipsia, Polyphagia, Polyuria, Other - Hematologic/Lymphatic Hematologic: absent: As Per HPI, Easy Bleeding, Easy Bruising, Lymphadenopathy, Other Past Patient History - Infectious Disease Hx of Infectious Diseases: None - Past Social History Smoking Status: Heavy Smoker > 10 Cigarettes Daily - CARDIAC Hx Hypertension: No - PULMONARY Hx Tuberculosis: No - NEUROLOGICAL Hx Seizures: No - HEMATOLOGICAL/ONCOLOGICAL Hx Human Immunodeficiency Virus (HIV): No - MUSCULOSKELETAL/RHEUMATOLOGICAL Hx Falls: No - GENITOURINARY/GYNECOLOGICAL Hx Sexually Transmitted Disorders: No - PSYCHIATRIC Hx Substance Use: Yes - SURGICAL HISTORY Hx Surgeries: Yes Other/Comment: L eye - ANESTHESIA Hx Anesthesia: No Hx Anesthesia Reactions: No Has any member of the family had a problem w/ anesthesia?: No (as per patient's mother) Meds Allergies/Adverse Reactions: Allergies Allergy/AdvReac Type Severity Reaction Status Date / Time No Known Allergies Allergy Verified 12/26/18 11:44 - Medications Medications: Current Medications Chlordiazepoxide (Librium) 50 mg PO Q4 PRN PRN Reason: Symptoms of alcohol withdrawl Enoxaparin Sodium (Lovenox) 40 mg SC DAILY [facility] Last Admin: 12/27/18 11:53 Dose: 40 mg Folic Acid (Folic Acid) 1 mg PO DAILY [facility] Last Admin: 12/27/18 11:56 Dose: 1 mg Norepinephrine Bitartrate 4 mg (/ Dextrose) 254 mls @ 15.24 mls/hr IV .[id number] PRN; Protocol PRN Reason: TITRATE PER MD ORDER Last Titration: 12/27/18 00:00 Dose: 0 mcg/min, 0 mls/hr Piperacillin Sod/Tazobactam Sod (Zosyn 3.375 Gm Iv Premix) 3.375 gm in 50 mls @ 100 mls/hr IVPB Q8H [facility]; Protocol Last Admin: 12/27/18 13:19 Dose: 100 mls/hr Vancomycin/Sodium Chloride (Vancomycin 1 Gm/Ns 200 Ml) 1 gm in 200 mls @ 133 mls/hr IVPB Q12H [facility]; Protocol Stop: 01/01/19 09:01 Last Admin: 12/27/18 11:47 Dose: 133 mls/hr Lactated Ringer's (Lactated Ringer's) 1,000 mls @ 75 mls/hr IV .[id number] [facility] Stop: 12/27/18 17:01 Last Admin: 12/27/18 09:00 Dose: 75 mls/hr Multivitamins (Hexavitamin) 1 tab PO DAILY [facility] Last Admin: 12/27/18 11:56 Dose: 1 tab Pantoprazole Sodium (Protonix Inj) 40 mg IVP DAILY [facility] Last Admin: 12/27/18 10:05 Dose: 40 mg Thiamine HCl (Vitamin B1 Tab) 100 mg PO DAILY [facility] Last Admin: 12/27/18 11:56 Dose: 100 mg Physical Exam - Constitutional Appears: Toxic, In Acute Distress - Head Exam Head Exam: ATRAUMATIC, NORMAL INSPECTION, NORMOCEPHALIC - Eye Exam Eye Exam: absent: Scleral icterus Pupil Exam: NORMAL ACCOMODATION, PERRL - ENT Exam ENT Exam: Mucous Membranes Dry - Neck Exam Neck exam: Positive for: Normal Inspection. Negative for: Lymphadenopathy, Thyromegaly - Respiratory Exam Respiratory Exam: Decreased Breath Sounds, Clear to Auscultation Bilateral, Prolonged Expiratory Phase - Cardiovascular Exam Cardiovascular Exam: REGULAR RHYTHM - GI/Abdominal Exam GI & Abdominal Exam: Diminished Bowel Sounds, Normal Bowel Sounds, Soft. absent: Tenderness - Rectal Exam Rectal Exam: Deferred - Exam Exam: NORMAL INSPECTION - Extremities Exam Extremities exam: Positive for: normal inspection, pedal pulses present. Negative for: calf tenderness, pedal edema - Back Exam Back exam: absent: CVA tenderness (L), CVA tenderness (R), paraspinal tenderness - Neurological Exam Neurological exam: Alert, CN II-XII Intact, Normal Gait, Oriented x3, Reflexes Normal - Psychiatric Exam Psychiatric exam: Depressed - Skin Skin Exam: Dry, Intact, Warm Additional comments: fresh track markss noted Results - Vital Signs Recent Vital Signs: Last Vital Signs Temp 97.7 F 12/27/18 12:00 Pulse 49 L 12/27/18 14:00 Resp 29 H 12/27/18 14:00 BP 134/82 12/27/18 14:00 Pulse Ox 98 12/27/18 14:00 - Labs Result Diagrams: 12/27/18 06:23 12/27/18 06:24 Labs: Laboratory Results - last 24 hr 12/26/18 12/26/18 12/26/18 12:30 15:20 19:55 WBC RBC Hgb Hct MCV MCH MCHC RDW Plt Count MPV Neut % (Auto) Lymph % (Auto) [place] % (Auto) Eos % (Auto) Baso % (Auto) Neut # (Auto) Lymph # (Auto) [place] # (Auto) Eos # (Auto) Baso # (Auto) Neutrophils % (Manual) Band Neutrophils % Lymphocytes % (Manual) Monocytes % (Manual) Toxic Granulation Platelet Estimate Large Platelets Polychromasia Anisocytosis (manual) Smear Path Review PT INR APTT Puncture Site pCO2 pO2 57 H HCO3 ABG pH ABG Total CO2 ABG O2 Saturation ABG Base Excess Sandor Test ABG Potassium VBG pH 7.32 VBG pCO2 40 VBG HCO3 20.6 VBG Total CO2 21.8 L VBG O2 Sat (Calc) 91.1 H VBG Base Excess -5.2 L VBG Potassium 2.7 L A-a O2 Difference Respiratory Index Sodium 136.0 Chloride 108.0 H Glucose 94 Lactate 1.8 Liter Flow FiO2 Potassium Carbon Dioxide Anion Gap BUN Creatinine Est GFR ( Amer) Est GFR (Non-Af Amer) Random Glucose Calcium Phosphorus Magnesium Total Bilirubin AST ALT Alkaline Phosphatase Ammonia Total Creatine Kinase Total Protein Albumin Globulin Albumin/Globulin Ratio Arterial Blood Potassium Venous Blood Potassium 2.7 L Hepatitis A IgM Ab Negative Hep Bs Antigen Negative Hep B Core IgM Ab Negative Hepatitis C Antibody Reactive 12/26/18 12/26/18 12/26/18 19:55 19:55 20:05 WBC RBC Hgb Hct MCV MCH MCHC RDW Plt Count MPV Neut % (Auto) Lymph % (Auto) [place] % (Auto) Eos % (Auto) Baso % (Auto) Neut # (Auto) Lymph # (Auto) [place] # (Auto) Eos # (Auto) Baso # (Auto) Neutrophils % (Manual) Band Neutrophils % Lymphocytes % (Manual) Monocytes % (Manual) Toxic Granulation Platelet Estimate Large Platelets Polychromasia Anisocytosis (manual) Smear Path Review PT 13.6 H INR 1.2 APTT 34 Puncture Site Rra pCO2 34 L pO2 103 H HCO3 20.7 L ABG pH 7.36 ABG Total CO2 20.2 L ABG O2 Saturation 99.1 H ABG Base Excess -5.4 L Sandor Test Pos ABG Potassium 3.3 L VBG pH VBG pCO2 VBG HCO3 VBG Total CO2 VBG O2 Sat (Calc) VBG Base Excess VBG Potassium A-a O2 Difference 83.0 Respiratory Index 0.8 Sodium 136.0 Chloride 105.0 Glucose 117 H Lactate 2.2 H Liter Flow 3.0 FiO2 32.0 Potassium Carbon Dioxide Anion Gap BUN Creatinine Est GFR ( Amer) Est GFR (Non-Af Amer) Random Glucose Calcium Phosphorus Magnesium Total Bilirubin AST ALT Alkaline Phosphatase Ammonia < 9 L Total Creatine Kinase Total Protein Albumin Globulin Albumin/Globulin Ratio Arterial Blood Potassium 3.3 L Venous Blood Potassium Hepatitis A IgM Ab Hep Bs Antigen Hep B Core IgM Ab Hepatitis C Antibody 12/27/18 12/27/18 06:23 06:24 WBC 10.1 D RBC 4.29 L Hgb 13.4 D Hct 39.2 MCV 91.5 MCH 31.3 H MCHC 34.2 RDW 15.3 H Plt Count 58 L D MPV 8.8 Neut % (Auto) 91.4 H Lymph % (Auto) 4.2 L [place] % (Auto) 4.2 Eos % (Auto) 0.0 Baso % (Auto) 0.2 Neut # (Auto) 9.2 H Lymph # (Auto) 0.4 L [place] # (Auto) 0.4 Eos # (Auto) 0.0 Baso # (Auto) 0.0 Neutrophils % (Manual) 66 Band Neutrophils % 26 H* Lymphocytes % (Manual) 4 L Monocytes % (Manual) 4 Toxic Granulation Present Platelet Estimate Markedly decreased L Large Platelets Present Polychromasia Slight Anisocytosis (manual) Slight Smear Path Review PT INR APTT Puncture Site pCO2 pO2 HCO3 ABG pH ABG Total CO2 ABG O2 Saturation ABG Base Excess Sandor Test ABG Potassium VBG pH VBG pCO2 VBG HCO3 VBG Total CO2 VBG O2 Sat (Calc) VBG Base Excess VBG Potassium A-a O2 Difference Respiratory Index Sodium 137 Chloride 107 Glucose Lactate Liter Flow FiO2 Potassium 3.6 Carbon Dioxide 24 Anion Gap 11 BUN 21 H Creatinine 0.9 Est GFR ( Amer) > 60 Est GFR (Non-Af Amer) > 60 Random Glucose 98 Calcium 8.5 L Phosphorus 2.8 Magnesium 1.6 Total Bilirubin 1.1 AST 84 H D ALT 60 Alkaline Phosphatase 124 Ammonia Total Creatine Kinase 82 Total Protein 6.2 L Albumin 3.0 L D Globulin 3.2 Albumin/Globulin Ratio 0.9 L Arterial Blood Potassium Venous Blood Potassium Hepatitis A IgM Ab Hep Bs Antigen Hep B Core IgM Ab Hepatitis C Antibody Assessment & Plan (1) Opioid abuse Status: Acute (2) Sepsis Status: Acute - Assessment and Plan (Free Text) Assessment: gram negative sepsis in the setting of IV drug use r/o pseudomonas bacteremia cytopenia likely related to sepsis cont IV antibiotics will need echo, HIV and Hep screen detox eval
--- NOTE | 2018-12-27 14:55 | CP.CCUPN ---
CCU Subjective - Physician Review Events Since Last Encounter (Free Text): 12/27/18 14:52 alert and oriented, going through withdrawal symptoms, diaphoretic and shaking. CCU Objective - Vital Signs / Intake & Output Vital Signs (Last 4 hours): Vital Signs Temp Pulse Resp BP Pulse Ox 12/27/18 14:00 49 L 29 H 134/82 98 12/27/18 13:00 51 L 21 130/76 98 12/27/18 12:00 97.7 F 50 L 24 124/75 100 12/27/18 11:00 46 L 25 H 122/76 99 Intake and Output (Last 8hrs): Intake & Output 12/26/18 12/27/18 12/27/18 22:59 06:59 14:59 Intake Total 641.6 773.5 475 Output Total 1250 550 Balance 641.6 -476.5 -75 Weight 167 lb 11.2 oz Intake: IV 97 16 Intake, IV Amount 544.6 757.5 475 Left Forearm 45.6 Right Antecubital 100 475 Right Distal Port Femoral 65.2 50 Right Medial Port Femoral 33.8 7.5 Right Proximal Port 300 700 0 Femoral Output: Urine 1250 550 Urine, Voided 1250 550 Other: # Voids Urine, Voided 1 1 - Physical Exam Head: Positive for: Atraumatic, Normocephalic Pupils: Positive for: PERRL Extroacular Muscles: Positive for: EOMI Conjunctiva: Positive for: Normal Ears: Positive for: Normal Mouth: Positive for: Moist Mucous Membranes Nose (External): Positive for: Atraumatic Neck: Positive for: Normal Range of Motion Respiratory/Chest: Positive for: Clear to Auscultation, Good Air Exchange Cardiovascular: Positive for: Bradycardic Abdomen: Negative for: Tenderness, Distention Upper Extremity: Positive for: Normal Inspection Lower Extremity: Positive for: Normal Inspection Neurological: Positive for: GCS=15, CN II-XII Intact Psychiatric: Positive for: Alert, Agitated - Medications Active Medications: Active Medications Generic Name Dose Route Start Last Admin Trade Name Freq PRN Reason Stop Dose Admin Chlordiazepoxide 50 mg 12/27/18 10:07 Librium PO Q4 PRN Symptoms of alcohol withdrawl Enoxaparin Sodium 40 mg 12/27/18 11:00 12/27/18 11:53 Lovenox SC 40 mg DAILY SABI Administration Folic Acid 1 mg 12/27/18 10:15 12/27/18 11:56 Folic Acid PO 1 mg DAILY SABI Administration Norepinephrine Bitartrate 4 mg 254 mls @ 15.24 mls/hr 12/26/18 14:49 12/27/18 00:00 / Dextrose IV 0 mcg/min .[id number] PRN 0 mls/hr TITRATE PER MD ORDER Titration Protocol 4 MCG/MIN Piperacillin Sod/Tazobactam Sod 3.375 gm in 50 mls @ 100 mls/hr 12/26/18 21:30 12/27/18 13:19 Zosyn 3.375 Gm Iv Premix IVPB 100 mls/hr Q8H SABI Administration Protocol Lactated Ringer's 1,000 mls @ 75 mls/hr 12/27/18 09:00 12/27/18 09:00 Lactated Ringer's IV 12/27/18 17:01 75 mls/hr .[id number] SABI Administration Aztreonam 1 gm/ Sodium 100 mls @ 200 mls/hr 12/27/18 14:45 Chloride IVPB Q8H SABI Protocol Lorazepam 1 mg 12/27/18 15:00 Ativan IVP Q6H PRN Anxiety Multivitamins 1 tab 12/27/18 10:15 12/27/18 11:56 Hexavitamin PO 1 tab DAILY SABI Administration Pantoprazole Sodium 40 mg 12/27/18 10:00 12/27/18 10:05 Protonix Inj IVP 40 mg DAILY SABI Administration Thiamine HCl 100 mg 12/27/18 10:15 12/27/18 11:56 Vitamin B1 Tab PO 100 mg DAILY SABI Administration - Patient Studies Lab Studies: Microbiology Studies 12/26/18 12:57 Blood Culture - Preliminary Blood Gram Negative Masoud Gram Stain - Final 12/26/18 13:03 Blood Culture - Preliminary Blood Gram Negative Masoud Gram Stain - Final Lab Studies 12/27/18 12/27/18 12/26/18 Range/Units 06:24 06:23 20:05 WBC 10.1 D (4.8-10.8) K/uL RBC 4.29 L (4.40-5.90) Mil/uL Hgb 13.4 D (12.0-18.0) g/dL Hct 39.2 (35.0-51.0) % MCV 91.5 (80.0-94.0) fL MCH 31.3 H (27.0-31.0) pg MCHC 34.2 (33.0-37.0) g/dL RDW 15.3 H (11.5-14.5) % Plt Count 58 L D (130-400) K/uL MPV 8.8 (7.2-11.7) fL Neut % (Auto) 91.4 H (50.0-75.0) % Lymph % (Auto) 4.2 L (20.0-40.0) % Foard % (Auto) 4.2 (0.0-10.0) % Eos % (Auto) 0.0 (0.0-4.0) % Baso % (Auto) 0.2 (0.0-2.0) % Neut # (Auto) 9.2 H (1.8-7.0) K/uL Lymph # (Auto) 0.4 L (1.0-4.3) K/uL Foard # (Auto) 0.4 (0.0-0.8) K/uL Eos # (Auto) 0.0 (0.0-0.7) K/uL Baso # (Auto) 0.0 (0.0-0.2) K/uL Neutrophils % (Manual) 66 (50-75) % Band Neutrophils % 26 H* (0-2) % Lymphocytes % (Manual) 4 L (20-40) % Monocytes % (Manual) 4 (0-10) % Toxic Granulation Present Platelet Estimate Markedly decreased L (NORMAL) Large Platelets Present Polychromasia Slight Anisocytosis (manual) Slight Smear Path Review PT (9.7-12.2) SECONDS INR APTT (21-34) SECONDS Puncture Site Rra pCO2 34 L (35-45) mm/Hg pO2 103 H (30-55) mm/Hg HCO3 20.7 L (21-28) mmol/L ABG pH 7.36 (7.35-7.45) ABG Total CO2 20.2 L (22-28) mmol/L ABG O2 Saturation 99.1 H (95-98) % ABG Base Excess -5.4 L (-2.0-3.0) mmol/L Sandor Test Pos ABG Potassium 3.3 L (3.6-5.2) mmol/L VBG pH (7.32-7.43) VBG pCO2 (40-60) mmHg VBG HCO3 mmol/L VBG Total CO2 (22-28) mmol/L VBG O2 Sat (Calc) (40-65) % VBG Base Excess (0.0-2.0) mmol/L VBG Potassium (3.6-5.2) mmol/L A-a O2 Difference 83.0 mm/Hg Respiratory Index 0.8 Sodium 137 136.0 (132-148) mmol/l Chloride 107 105.0 (98-107) mmol/L Glucose 117 H (75-110) mg/dl Lactate 2.2 H (0.7-2.1) mmol/L Liter Flow 3.0 FiO2 32.0 % Potassium 3.6 (3.6-5.2) mmol/L Carbon Dioxide 24 (22-30) mmol/L Anion Gap 11 (10-20) BUN 21 H (9-20) mg/dL Creatinine 0.9 (0.8-1.5) mg/dL Est GFR ( Amer) > 60 Est GFR (Non-Af Amer) > 60 Random Glucose 98 (75-110) mg/dL Calcium 8.5 L (8.6-10.4) mg/dl Phosphorus 2.8 (2.5-4.5) mg/dL Magnesium 1.6 (1.6-2.3) mg/dL Total Bilirubin 1.1 (0.2-1.3) mg/dL AST 84 H D (17-59) U/L ALT 60 (21-72) U/L Alkaline Phosphatase 124 (38-126) U/L Ammonia (9-33) umol/L Total Creatine Kinase 82 (55-170) U/L Total Protein 6.2 L (6.3-8.3) g/dL Albumin 3.0 L D (3.5-5.0) g/dL Globulin 3.2 (2.2-3.9) gm/dL Albumin/Globulin Ratio 0.9 L (1.0-2.1) Arterial Blood Potassium 3.3 L (3.6-5.2) mmol/L Venous Blood Potassium (3.6-5.2) mmol/L Hepatitis A IgM Ab (NEGATIVE) Hep Bs Antigen (NEGATIVE) Hep B Core IgM Ab (NEGATIVE) Hepatitis C Antibody (NEGATIVE) 12/26/18 12/26/18 12/26/18 Range/Units 19:55 19:55 19:55 WBC (4.8-10.8) K/uL RBC (4.40-5.90) Mil/uL Hgb (12.0-18.0) g/dL Hct (35.0-51.0) % MCV (80.0-94.0) fL MCH (27.0-31.0) pg MCHC (33.0-37.0) g/dL RDW (11.5-14.5) % Plt Count (130-400) K/uL MPV (7.2-11.7) fL Neut % (Auto) (50.0-75.0) % Lymph % (Auto) (20.0-40.0) % Foard % (Auto) (0.0-10.0) % Eos % (Auto) (0.0-4.0) % Baso % (Auto) (0.0-2.0) % Neut # (Auto) (1.8-7.0) K/uL Lymph # (Auto) (1.0-4.3) K/uL Foard # (Auto) (0.0-0.8) K/uL Eos # (Auto) (0.0-0.7) K/uL Baso # (Auto) (0.0-0.2) K/uL Neutrophils % (Manual) (50-75) % Band Neutrophils % (0-2) % Lymphocytes % (Manual) (20-40) % Monocytes % (Manual) (0-10) % Toxic Granulation Platelet Estimate (NORMAL) Large Platelets Polychromasia Anisocytosis (manual) Smear Path Review PT 13.6 H (9.7-12.2) SECONDS INR 1.2 APTT 34 (21-34) SECONDS Puncture Site pCO2 (35-45) mm/Hg pO2 (30-55) mm/Hg HCO3 (21-28) mmol/L ABG pH (7.35-7.45) ABG Total CO2 (22-28) mmol/L ABG O2 Saturation (95-98) % ABG Base Excess (-2.0-3.0) mmol/L Sandor Test ABG Potassium (3.6-5.2) mmol/L VBG pH (7.32-7.43) VBG pCO2 (40-60) mmHg VBG HCO3 mmol/L VBG Total CO2 (22-28) mmol/L VBG O2 Sat (Calc) (40-65) % VBG Base Excess (0.0-2.0) mmol/L VBG Potassium (3.6-5.2) mmol/L A-a O2 Difference mm/Hg Respiratory Index Sodium (132-148) mmol/l Chloride (98-107) mmol/L Glucose (75-110) mg/dl Lactate (0.7-2.1) mmol/L Liter Flow FiO2 % Potassium (3.6-5.2) mmol/L Carbon Dioxide (22-30) mmol/L Anion Gap (10-20) BUN (9-20) mg/dL Creatinine (0.8-1.5) mg/dL Est GFR ( Amer) Est GFR (Non-Af Amer) Random Glucose (75-110) mg/dL Calcium (8.6-10.4) mg/dl Phosphorus (2.5-4.5) mg/dL Magnesium (1.6-2.3) mg/dL Total Bilirubin (0.2-1.3) mg/dL AST (17-59) U/L ALT (21-72) U/L Alkaline Phosphatase (38-126) U/L Ammonia < 9 L (9-33) umol/L Total Creatine Kinase (55-170) U/L Total Protein (6.3-8.3) g/dL Albumin (3.5-5.0) g/dL Globulin (2.2-3.9) gm/dL Albumin/Globulin Ratio (1.0-2.1) Arterial Blood Potassium (3.6-5.2) mmol/L Venous Blood Potassium (3.6-5.2) mmol/L Hepatitis A IgM Ab Negative (NEGATIVE) Hep Bs Antigen Negative (NEGATIVE) Hep B Core IgM Ab Negative (NEGATIVE) Hepatitis C Antibody Reactive (NEGATIVE) 12/26/18 12/26/18 Range/Units 15:20 12:30 WBC (4.8-10.8) K/uL RBC (4.40-5.90) Mil/uL Hgb (12.0-18.0) g/dL Hct (35.0-51.0) % MCV (80.0-94.0) fL MCH (27.0-31.0) pg MCHC (33.0-37.0) g/dL RDW (11.5-14.5) % Plt Count (130-400) K/uL MPV (7.2-11.7) fL Neut % (Auto) (50.0-75.0) % Lymph % (Auto) (20.0-40.0) % Foard % (Auto) (0.0-10.0) % Eos % (Auto) (0.0-4.0) % Baso % (Auto) (0.0-2.0) % Neut # (Auto) (1.8-7.0) K/uL Lymph # (Auto) (1.0-4.3) K/uL Foard # (Auto) (0.0-0.8) K/uL Eos # (Auto) (0.0-0.7) K/uL Baso # (Auto) (0.0-0.2) K/uL Neutrophils % (Manual) (50-75) % Band Neutrophils % (0-2) % Lymphocytes % (Manual) (20-40) % Monocytes % (Manual) (0-10) % Toxic Granulation Platelet Estimate (NORMAL) Large Platelets Polychromasia Anisocytosis (manual) Smear Path Review PT (9.7-12.2) SECONDS INR APTT (21-34) SECONDS Puncture Site pCO2 (35-45) mm/Hg pO2 57 H (30-55) mm/Hg HCO3 (21-28) mmol/L ABG pH (7.35-7.45) ABG Total CO2 (22-28) mmol/L ABG O2 Saturation (95-98) % ABG Base Excess (-2.0-3.0) mmol/L Sandor Test ABG Potassium (3.6-5.2) mmol/L VBG pH 7.32 (7.32-7.43) VBG pCO2 40 (40-60) mmHg VBG HCO3 20.6 mmol/L VBG Total CO2 21.8 L (22-28) mmol/L VBG O2 Sat (Calc) 91.1 H (40-65) % VBG Base Excess -5.2 L (0.0-2.0) mmol/L VBG Potassium 2.7 L (3.6-5.2) mmol/L A-a O2 Difference mm/Hg Respiratory Index Sodium 136.0 (132-148) mmol/l Chloride 108.0 H (98-107) mmol/L Glucose 94 (75-110) mg/dl Lactate 1.8 (0.7-2.1) mmol/L Liter Flow FiO2 % Potassium (3.6-5.2) mmol/L Carbon Dioxide (22-30) mmol/L Anion Gap (10-20) BUN (9-20) mg/dL Creatinine (0.8-1.5) mg/dL Est GFR ( Amer) Est GFR (Non-Af Amer) Random Glucose (75-110) mg/dL Calcium (8.6-10.4) mg/dl Phosphorus (2.5-4.5) mg/dL Magnesium (1.6-2.3) mg/dL Total Bilirubin (0.2-1.3) mg/dL AST (17-59) U/L ALT (21-72) U/L Alkaline Phosphatase (38-126) U/L Ammonia (9-33) umol/L Total Creatine Kinase (55-170) U/L Total Protein (6.3-8.3) g/dL Albumin (3.5-5.0) g/dL Globulin (2.2-3.9) gm/dL Albumin/Globulin Ratio (1.0-2.1) Arterial Blood Potassium (3.6-5.2) mmol/L Venous Blood Potassium 2.7 L (3.6-5.2) mmol/L Hepatitis A IgM Ab (NEGATIVE) Hep Bs Antigen (NEGATIVE) Hep B Core IgM Ab (NEGATIVE) Hepatitis C Antibody (NEGATIVE) Laboratory Results - last 24 hr 12/26/18 12/26/18 12/26/18 12:30 15:20 19:55 WBC RBC Hgb Hct MCV MCH MCHC RDW Plt Count MPV Neut % (Auto) Lymph % (Auto) Foard % (Auto) Eos % (Auto) Baso % (Auto) Neut # (Auto) Lymph # (Auto) Foard # (Auto) Eos # (Auto) Baso # (Auto) Neutrophils % (Manual) Band Neutrophils % Lymphocytes % (Manual) Monocytes % (Manual) Toxic Granulation Platelet Estimate Large Platelets Polychromasia Anisocytosis (manual) Smear Path Review PT INR APTT Puncture Site pCO2 pO2 57 H HCO3 ABG pH ABG Total CO2 ABG O2 Saturation ABG Base Excess Sandor Test ABG Potassium VBG pH 7.32 VBG pCO2 40 VBG HCO3 20.6 VBG Total CO2 21.8 L VBG O2 Sat (Calc) 91.1 H VBG Base Excess -5.2 L VBG Potassium 2.7 L A-a O2 Difference Respiratory Index Sodium 136.0 Chloride 108.0 H Glucose 94 Lactate 1.8 Liter Flow FiO2 Potassium Carbon Dioxide Anion Gap BUN Creatinine Est GFR ( Amer) Est GFR (Non-Af Amer) Random Glucose Calcium Phosphorus Magnesium Total Bilirubin AST ALT Alkaline Phosphatase Ammonia Total Creatine Kinase Total Protein Albumin Globulin Albumin/Globulin Ratio Arterial Blood Potassium Venous Blood Potassium 2.7 L Hepatitis A IgM Ab Negative Hep Bs Antigen Negative Hep B Core IgM Ab Negative Hepatitis C Antibody Reactive 12/26/18 12/26/18 12/26/18 19:55 19:55 20:05 WBC RBC Hgb Hct MCV MCH MCHC RDW Plt Count MPV Neut % (Auto) Lymph % (Auto) Foard % (Auto) Eos % (Auto) Baso % (Auto) Neut # (Auto) Lymph # (Auto) Foard # (Auto) Eos # (Auto) Baso # (Auto) Neutrophils % (Manual) Band Neutrophils % Lymphocytes % (Manual) Monocytes % (Manual) Toxic Granulation Platelet Estimate Large Platelets Polychromasia Anisocytosis (manual) Smear Path Review PT 13.6 H INR 1.2 APTT 34 Puncture Site Rra pCO2 34 L pO2 103 H HCO3 20.7 L ABG pH 7.36 ABG Total CO2 20.2 L ABG O2 Saturation 99.1 H ABG Base Excess -5.4 L Sandor Test Pos ABG Potassium 3.3 L VBG pH VBG pCO2 VBG HCO3 VBG Total CO2 VBG O2 Sat (Calc) VBG Base Excess VBG Potassium A-a O2 Difference 83.0 Respiratory Index 0.8 Sodium 136.0 Chloride 105.0 Glucose 117 H Lactate 2.2 H Liter Flow 3.0 FiO2 32.0 Potassium Carbon Dioxide Anion Gap BUN Creatinine Est GFR ( Amer) Est GFR (Non-Af Amer) Random Glucose Calcium Phosphorus Magnesium Total Bilirubin AST ALT Alkaline Phosphatase Ammonia < 9 L Total Creatine Kinase Total Protein Albumin Globulin Albumin/Globulin Ratio Arterial Blood Potassium 3.3 L Venous Blood Potassium Hepatitis A IgM Ab Hep Bs Antigen Hep B Core IgM Ab Hepatitis C Antibody 12/27/18 12/27/18 06:23 06:24 WBC 10.1 D RBC 4.29 L Hgb 13.4 D Hct 39.2 MCV 91.5 MCH 31.3 H MCHC 34.2 RDW 15.3 H Plt Count 58 L D MPV 8.8 Neut % (Auto) 91.4 H Lymph % (Auto) 4.2 L Foard % (Auto) 4.2 Eos % (Auto) 0.0 Baso % (Auto) 0.2 Neut # (Auto) 9.2 H Lymph # (Auto) 0.4 L Foard # (Auto) 0.4 Eos # (Auto) 0.0 Baso # (Auto) 0.0 Neutrophils % (Manual) 66 Band Neutrophils % 26 H* Lymphocytes % (Manual) 4 L Monocytes % (Manual) 4 Toxic Granulation Present Platelet Estimate Markedly decreased L Large Platelets Present Polychromasia Slight Anisocytosis (manual) Slight Smear Path Review PT INR APTT Puncture Site pCO2 pO2 HCO3 ABG pH ABG Total CO2 ABG O2 Saturation ABG Base Excess Sandor Test ABG Potassium VBG pH VBG pCO2 VBG HCO3 VBG Total CO2 VBG O2 Sat (Calc) VBG Base Excess VBG Potassium A-a O2 Difference Respiratory Index Sodium 137 Chloride 107 Glucose Lactate Liter Flow FiO2 Potassium 3.6 Carbon Dioxide 24 Anion Gap 11 BUN 21 H Creatinine 0.9 Est GFR ( Amer) > 60 Est GFR (Non-Af Amer) > 60 Random Glucose 98 Calcium 8.5 L Phosphorus 2.8 Magnesium 1.6 Total Bilirubin 1.1 AST 84 H D ALT 60 Alkaline Phosphatase 124 Ammonia Total Creatine Kinase 82 Total Protein 6.2 L Albumin 3.0 L D Globulin 3.2 Albumin/Globulin Ratio 0.9 L Arterial Blood Potassium Venous Blood Potassium Hepatitis A IgM Ab Hep Bs Antigen Hep B Core IgM Ab Hepatitis C Antibody Radiology Impressions: Radiology Impressions Chest X-Ray 12/26/18 12:18 IMPRESSION: Bibasilar atelectasis. Abdomen Ultrasound 12/26/18 13:51 IMPRESSION: 1. Moderate hepatosplenomegaly. 2. Small abdominal ascites. 3. Subcentimeter nonobstructing stone in the left interpolar region, the larger measures [address] 12/26/18 14:33 IMPRESSION: No CTA evidence for acute pulmonary embolism. Subsegmental atelectasis in the lower lobes, superimposed pneumonia cannot be excluded. Trace pleural effusions. Incompletely imaged hepatosplenomegaly. A preliminary report was provided by [facility]. The final report is tagged to the PA review folder. Chest X-Ray 12/26/18 18:23 IMPRESSION: Findings are consistent with worsening pulmonary venous congestion and interstitial pulmonary edema. Review of Systems - Review of Systems All systems: reviewed and no additional remarkable complaints except - Constitutional Constitutional: Chills Critical Care Progress Note - Nutrition Nutrition: Nutrition Category Date Time Status Regular Diet [DIET] Diets 12/27/18 Lunch Active Assessment/Plan (1) Sepsis Assessment and plan: 58 y/o male with hx of HIV (questionable), Hep C, ETOH abuser, Active Heroine abuser, Liver Cirrhosis, previously incarcerated brought to ER in gram negative septic shock after going on a drug binge (heroin, cocaine (self admits), marijuana, benzos). Neuro: alert and going through withdrawal. CIWA protocol with standing ativan and prn librium. Pulm: no acute issues, breathing spontaneously on room air CV: hemodynamically stable, now off of pressors. Hem: neutropenia resolved. Renal: no acute issues, urine output wnl. Endo: no acute issues GI: regular diet ID: confirmed hepatitis C exposure, HIV panel pending. Gram negative sepsis from UTI, continue Aztreonam. ID - Dr. Hutchinson DVT proph - lovenox GI proph - protonix yun for strict I/O's during acute illness Code status - full code RFem TLC (12/26) Critical Care Time spent 35 minutes Multi-disciplinary rounds were performed with house staff, nursing, speech therapy, respiratory therapy, pharmacy and nutrition with integrated input from the primary team/attending and other consulting services. The documented time is cumulative and includes review of patient data/exams/labs/chart review and examination of the patient on rounds and throughout the day; time is exclusive of any procedures or teaching time. Current Visit: Yes Status: Acute
[2018-12-27] MEDS: Aztreonam 1 GM in Sodium Chloride 0.9% 100 ML IVPB SCH (15:31)
[2018-12-28] MEDS: Aztreonam 1 GM in Sodium Chloride 0.9% 100 ML IVPB SCH ×3 (00:02→15:34)
--- NOTE | 2018-12-28 01:04 | CP.PCM.HP ---
Present on Admission - Present on Admission Any Indicators Present on Admission: No Past Patient History - Infectious Disease Hx of Infectious Diseases: None - Past Social History Smoking Status: Heavy Smoker > 10 Cigarettes Daily - CARDIAC Hx Hypertension: No - PULMONARY Hx Tuberculosis: No - NEUROLOGICAL Hx Seizures: No - HEMATOLOGICAL/ONCOLOGICAL Hx Human Immunodeficiency Virus (HIV): No - MUSCULOSKELETAL/RHEUMATOLOGICAL Hx Falls: No - GENITOURINARY/GYNECOLOGICAL Hx Sexually Transmitted Disorders: No - PSYCHIATRIC Hx Substance Use: Yes - SURGICAL HISTORY Hx Surgeries: Yes Other/Comment: L eye - ANESTHESIA Hx Anesthesia: No Hx Anesthesia Reactions: No Has any member of the family had a problem w/ anesthesia?: No (as per patient's mother) Meds Allergies/Adverse Reactions: Allergies Allergy/AdvReac Type Severity Reaction Status Date / Time No Known Allergies Allergy Verified 12/26/18 11:44 Results - Vital Signs Recent Vital Signs: Last Vital Signs Temp 98.2 F 12/28/18 00:00 Pulse 51 L 12/28/18 00:01 Resp 21 12/28/18 00:01 BP 149/80 12/28/18 00:01 Pulse Ox 96 12/28/18 00:01 - Labs Result Diagrams: 12/27/18 06:23 12/27/18 06:24 Labs: Laboratory Results - last 24 hr 12/27/18 12/27/18 06:23 06:24 WBC 10.1 D RBC 4.29 L Hgb 13.4 D Hct 39.2 MCV 91.5 MCH 31.3 H MCHC 34.2 RDW 15.3 H Plt Count 58 L D MPV 8.8 Neut % (Auto) 91.4 H Lymph % (Auto) 4.2 L [place] % (Auto) 4.2 Eos % (Auto) 0.0 Baso % (Auto) 0.2 Neut # (Auto) 9.2 H Lymph # (Auto) 0.4 L [place] # (Auto) 0.4 Eos # (Auto) 0.0 Baso # (Auto) 0.0 Neutrophils % (Manual) 66 Band Neutrophils % 26 H* Lymphocytes % (Manual) 4 L Monocytes % (Manual) 4 Toxic Granulation Present Platelet Estimate Markedly decreased L Large Platelets Present Polychromasia Slight Anisocytosis (manual) Slight Sodium 137 Potassium 3.6 Chloride 107 Carbon Dioxide 24 Anion Gap 11 BUN 21 H Creatinine 0.9 Est GFR ( Amer) > 60 Est GFR (Non-Af Amer) > 60 Random Glucose 98 Calcium 8.5 L Phosphorus 2.8 Magnesium 1.6 Total Bilirubin 1.1 AST 84 H D ALT 60 Alkaline Phosphatase 124 Total Creatine Kinase 82 Total Protein 6.2 L Albumin 3.0 L D Globulin 3.2 Albumin/Globulin Ratio 0.9 L
[2018-12-28] MEDS: Piperacill/Tazo 3.375gm in Dex 3.375 GM/50 ML BAG IVPB SCH ×3 (05:21→21:40)
[2018-12-28 06:29] LABS: BASO % 0.1 % (0.0-2.0); EOS % 0.1 % (0.0-4.0); HEMOGLOBIN 13.5 g/dL (12.0-18.0); LYMPH # 0.7 K/uL (1.0-4.3); LYMPH % 7.1 % (20.0-40.0); MEAN CELL VOLUME 91.4 fL (80.0-94.0); MEAN CORPUSCULAR HGB CONC 33.9 g/dL (33.0-37.0); MEAN PLATELET VOLUME 9.2 fL (7.2-11.7); MONO # 0.5 K/uL (0.0-0.8); MONO % 4.7 % (0.0-10.0); NEUT # 8.9 K/uL (1.8-7.0); PLATELET COUNT 59 K/uL (130-400); RBC 4.36 Mil/uL (4.40-5.90); WHITE BLOOD COUNT 10.1 K/uL (4.8-10.8)
[2018-12-28 06:39] LABS: ALT/SGPT 47 U/L (21-72); AST/SGOT 56 U/L (17-59); BLOOD UREA NITROGEN 19 mg/dL (9-20); CALCIUM 8.7 mg/dl (8.6-10.4); GFR NON-AFRICAN AMERICAN > 60
[2018-12-28] MEDS: Magnesium Sulfate 1 gm in D5W 1 GM/100 ML BAG IVPB SCH ×2 (08:07→08:45)
--- NOTE | 2018-12-28 08:34 | CP.CCUPN ---
CCU Subjective - Physician Review Events Since Last Encounter (Free Text): 12/28/18 08:34 Patient is a 58-year-old male with a history of HIV questionable positive, hep C, alcoholic abuse, active heroin abuse, liver cirrhosis admitted to the hospital following fever and chills. Hypertension. Patient was admitted to the hospital with possible septic shock hypothermia and a very low white count. Patient was initially started on levo fed, now off. He is awake and responding at this time. Increasing diarrhea noted. On examination: He is today feeling slightly better, but the profound diarrhea noted. Chest bilateral good air entry Regular [place] noted Abdomen soft. Edema 1+ noted bilaterally Blood culture gram-negative bacteremia Assessment and recommendation: 58-year-old male admitted to the hospital with acute drug overdose, complicated with the gram-negative septic shock in the setting of suspected HIV, alcoholic liver disease and also liver cirrhosis. Patient is at high risk for increased mortality. On antibiotic at this time. Infectious disease consultation appreciated. Patient is now having profound diarrhea, C. difficile colitis cannot be ruled out, but likely withdrawal symptoms, will continue the current treatment. We will add low-dose methadone, detox consultation. Continue antibiotic. We will follow the patient CCU Objective - Vital Signs / Intake & Output Vital Signs (Last 4 hours): Vital Signs Pulse Resp BP Pulse Ox 12/28/18 06:00 56 L 30 H 162/91 H 96 12/28/18 05:00 52 L 32 H 161/90 H 94 L Intake and Output (Last 8hrs): Intake & Output 12/27/18 12/28/18 12/28/18 22:59 06:59 14:59 Intake Total 1265 900 Output Total 900 600 Balance 365 300 Weight 165 lb Intake: Intake, IV Amount 625 600 Right Antecubital 625 600 Oral 640 300 Output: Urine 900 600 Urine, Voided 900 600 Other: # Voids Urine, Voided 1 # Bowel Movements 0 0 - Physical Exam Head: Positive for: Atraumatic, Normocephalic Pupils: Positive for: PERRL Extroacular Muscles: Positive for: EOMI Conjunctiva: Positive for: Normal Ears: Positive for: Normal Mouth: Positive for: Moist Mucous Membranes Nose (External): Positive for: Atraumatic Neck: Positive for: Normal Range of Motion Respiratory/Chest: Positive for: Clear to Auscultation, Good Air Exchange Cardiovascular: Positive for: Bradycardic Abdomen: Negative for: Tenderness, Distention Upper Extremity: Positive for: Normal Inspection Lower Extremity: Positive for: Normal Inspection Neurological: Positive for: GCS=15, CN II-XII Intact Psychiatric: Positive for: Alert, Agitated - Medications Active Medications: Active Medications Generic Name Dose Route Start Last Admin Trade Name Freq PRN Reason Stop Dose Admin Chlordiazepoxide 50 mg 12/27/18 10:07 Librium PO Q4 PRN Symptoms of alcohol withdrawl Enoxaparin Sodium 40 mg 12/27/18 11:00 12/27/18 11:53 Lovenox SC 40 mg DAILY SABI Administration Folic Acid 1 mg 12/27/18 10:15 12/27/18 11:56 Folic Acid PO 1 mg DAILY SABI Administration Piperacillin Sod/Tazobactam Sod 3.375 gm in 50 mls @ 100 mls/hr 12/26/18 21:30 12/28/18 05:21 Zosyn 3.375 Gm Iv Premix IVPB 100 mls/hr Q8H SABI Administration Protocol Aztreonam 1 gm/ Sodium 100 mls @ 200 mls/hr 12/27/18 16:00 12/28/18 07:37 Chloride IVPB 200 mls/hr Q8H SABI Administration Protocol Magnesium Sulfate/Dextrose 1 gm in 100 mls @ 300 mls/hr 12/28/18 08:00 12/28/18 08:07 Magnesium Sulfate 1 Gm/100 Ml D5w IVPB 12/28/18 08:49 300 mls/hr Q30M SABI Administration Potassium Chloride 20 meq in 100 mls @ 50 mls/hr 12/28/18 08:00 12/28/18 08:08 Potassium Chloride 20 Meq/100 Ml IVPB 12/28/18 10:59 50 mls/hr Q1 SABI Administration Lorazepam 1 mg 12/27/18 15:00 12/27/18 14:58 Ativan IVP 1 mg Q6H PRN Administration Anxiety Multivitamins 1 tab 12/27/18 10:15 12/27/18 11:56 Hexavitamin PO 1 tab DAILY SABI Administration Pantoprazole Sodium 40 mg 12/27/18 10:00 12/27/18 10:05 Protonix Inj IVP 40 mg DAILY SBAI Administration Thiamine HCl 100 mg 12/27/18 10:15 12/27/18 11:56 Vitamin B1 Tab PO 100 mg DAILY SABI Administration Trazodone HCl 50 mg 12/27/18 22:28 12/27/18 23:02 Desyrel PO 50 mg HS PRN Administration Insomnia - Patient Studies Lab Studies: Microbiology Studies 12/26/18 12:57 Blood Culture - Preliminary Blood Gram Negative Masoud Gram Stain - Final 12/26/18 13:03 Blood Culture - Preliminary Blood Gram Negative Masoud Gram Stain - Final Lab Studies 12/28/18 12/28/18 12/27/18 Range/Units 06:18 06:18 06:23 WBC 10.1 (4.8-10.8) K/uL RBC 4.36 L (4.40-5.90) Mil/uL Hgb 13.5 (12.0-18.0) g/dL Hct 39.8 (35.0-51.0) % MCV 91.4 (80.0-94.0) fL MCH 31.0 (27.0-31.0) pg MCHC 33.9 (33.0-37.0) g/dL RDW 15.0 H (11.5-14.5) % Plt Count 59 L (130-400) K/uL MPV 9.2 (7.2-11.7) fL Neut % (Auto) 88.0 H (50.0-75.0) % Lymph % (Auto) 7.1 L (20.0-40.0) % [place] % (Auto) 4.7 (0.0-10.0) % Eos % (Auto) 0.1 (0.0-4.0) % Baso % (Auto) 0.1 (0.0-2.0) % Neut # (Auto) 8.9 H (1.8-7.0) K/uL Lymph # (Auto) 0.7 L (1.0-4.3) K/uL [place] # (Auto) 0.5 (0.0-0.8) K/uL Eos # (Auto) 0.0 (0.0-0.7) K/uL Baso # (Auto) 0.0 (0.0-0.2) K/uL Neutrophils % (Manual) 66 (50-75) % Band Neutrophils % 26 H* (0-2) % Lymphocytes % (Manual) 4 L (20-40) % Monocytes % (Manual) 4 (0-10) % Toxic Granulation Present Platelet Estimate Markedly decreased L (NORMAL) Large Platelets Present Polychromasia Slight Anisocytosis (manual) Slight Sodium 134 (132-148) mmol/L Potassium 2.9 L (3.6-5.2) mmol/L Chloride 105 (98-107) mmol/L Carbon Dioxide 25 (22-30) mmol/L Anion Gap 7 L (10-20) BUN 19 (9-20) mg/dL Creatinine 0.6 L (0.8-1.5) mg/dL Est GFR ( Amer) > 60 Est GFR (Non-Af Amer) > 60 Random Glucose 121 H D (75-110) mg/dL Calcium 8.7 (8.6-10.4) mg/dl Phosphorus 2.5 (2.5-4.5) mg/dL Magnesium 1.7 (1.6-2.3) mg/dL Total Bilirubin 0.9 (0.2-1.3) mg/dL AST 56 (17-59) U/L ALT 47 (21-72) U/L Alkaline Phosphatase 113 (38-126) U/L Total Protein 6.1 L (6.3-8.3) g/dL Albumin 3.0 L (3.5-5.0) g/dL Globulin 3.1 (2.2-3.9) gm/dL Albumin/Globulin Ratio 1.0 (1.0-2.1) TSH 3rd Generation 0.17 L (0.46-4.68) mIU/L Laboratory Results - last 24 hr 12/27/18 12/28/18 12/28/18 06:23 06:18 06:18 WBC 10.1 RBC 4.36 L Hgb 13.5 Hct 39.8 MCV 91.4 MCH 31.0 MCHC 33.9 RDW 15.0 H Plt Count 59 L MPV 9.2 Neut % (Auto) 88.0 H Lymph % (Auto) 7.1 L [place] % (Auto) 4.7 Eos % (Auto) 0.1 Baso % (Auto) 0.1 Neut # (Auto) 8.9 H Lymph # (Auto) 0.7 L [place] # (Auto) 0.5 Eos # (Auto) 0.0 Baso # (Auto) 0.0 Neutrophils % (Manual) 66 Band Neutrophils % 26 H* Lymphocytes % (Manual) 4 L Monocytes % (Manual) 4 Toxic Granulation Present Platelet Estimate Markedly decreased L Large Platelets Present Polychromasia Slight Anisocytosis (manual) Slight Sodium 134 Potassium 2.9 L Chloride 105 Carbon Dioxide 25 Anion Gap 7 L BUN 19 Creatinine 0.6 L Est GFR ( Amer) > 60 Est GFR (Non-Af Amer) > 60 Random Glucose 121 H D Calcium 8.7 Phosphorus 2.5 Magnesium 1.7 Total Bilirubin 0.9 AST 56 ALT 47 Alkaline Phosphatase 113 Total Protein 6.1 L Albumin 3.0 L Globulin 3.1 Albumin/Globulin Ratio 1.0 TSH 3rd Generation 0.17 L Radiology Impressions: Radiology Impressions Chest CT 12/26/18 14:33 IMPRESSION: No CTA evidence for acute pulmonary embolism. Subsegmental atelectasis in the lower lobes, superimposed pneumonia cannot be excluded. Trace pleural effusions. Incompletely imaged hepatosplenomegaly. A preliminary report was provided by [employer]. The final report is tagged to the PA review folder. Critical Care Progress Note - Nutrition Nutrition: Nutrition Category Date Time Status Regular Diet [DIET] Diets 12/27/18 Lunch Active
[2018-12-28] MEDS: Multiple Vitamins Tab PO SCH (09:05)
[2018-12-28] MEDS: Enoxaparin 40 mg Syringe SC SCH (09:06)
[2018-12-28 09:07] LABS: BANDS 16 % (0-2); LYMPHOCYTE 10 % (20-40); MONOCYTE 7 % (0-10); NEUTROPHIL 67 % (50-75); TOTAL CELLS COUNTED 100
[2018-12-28 09:09] LABS: ANISOCYTOSIS SLIGHT; PLATELET ESTIMATE MARKEDLY DECREASED (NORMAL)
[2018-12-28 09:11] LABS: HYPOCHROMIC SLIGHT; POLYCHROMIC SLIGHT; TOXIC GRANULATION PRESENT
--- NOTE | 2018-12-28 10:34 | PCM.PSYCH ---
Initial Psychiatric Evaluation - Initial Psychiatric Evaluation Type of Admission: Voluntary Legal Status: Capacity Chief Complaint (in patient's own words): "heroin" History of Present Illness and Precipitating Events: The pt is seen, chart reviewed, case discussed Consultation was requested for his substance use This is a 58 y/o WM, single, with no child, lives withe: friends, mother, nursing home... Unemployed. Consult was asked for his heroin use He admits to shooting 15 bags since June 2018. First use was when he was 16 y.o. Once detox in [place], no rehab, used subs and meth in the past. Denies other drugs but drinks "a little" He feels depressed and has had SI before admission, not suicidal now No psych admission Medical: Hep C, cirrhosis of the liver Family psych: bother has used heroin too Current Medications: Active Medications Generic Name Dose Route Start Last Admin Trade Name Freq PRN Reason Stop Dose Admin Chlordiazepoxide 50 mg 12/27/18 10:07 Librium PO Q4 PRN Symptoms of alcohol withdrawl Enoxaparin Sodium 40 mg 12/27/18 11:00 12/28/18 09:06 Lovenox SC 40 mg DAILY SABI Administration Folic Acid 1 mg 12/27/18 10:15 12/28/18 09:05 Folic Acid PO 1 mg DAILY SABI Administration Piperacillin Sod/Tazobactam Sod 3.375 gm in 50 mls @ 100 mls/hr 12/26/18 21:30 12/28/18 05:21 Zosyn 3.375 Gm Iv Premix IVPB 100 mls/hr Q8H SABI Administration Protocol Aztreonam 1 gm/ Sodium 100 mls @ 200 mls/hr 12/27/18 16:00 12/28/18 07:37 Chloride IVPB 200 mls/hr Q8H SABI Administration Protocol Potassium Chloride 20 meq in 100 mls @ 50 mls/hr 12/28/18 08:00 12/28/18 10:10 Potassium Chloride 20 Meq/100 Ml IVPB 12/28/18 10:59 50 mls/hr Q1 ASBI Administration Lorazepam 1 mg 12/27/18 15:00 12/27/18 14:58 Ativan IVP 1 mg Q6H PRN Administration Anxiety Methadone HCl 10 mg 12/28/18 11:00 Methadone PO 12/28/18 11:01 ONCE ONE Methadone HCl 0 mg 12/29/18 09:00 Methadone PO 01/02/19 08:59 Q24H SABI Taper Multivitamins 1 tab 12/27/18 10:15 12/28/18 09:05 Hexavitamin PO 1 tab DAILY SABI Administration Pantoprazole Sodium 40 mg 12/27/18 10:00 12/28/18 09:05 Protonix Inj IVP 40 mg DAILY SABI Administration Thiamine HCl 100 mg 12/27/18 10:15 12/28/18 09:05 Vitamin B1 Tab PO 100 mg DAILY SABI Administration Trazodone HCl 50 mg 12/27/18 22:28 12/27/18 23:02 Desyrel PO 50 mg HS PRN Administration Insomnia Past Psychiatric History - Past Psychiatric History Pertinent Medical Hx (Current Medical&Sleep Prob, Allergies): Allergies Allergy/AdvReac Type Severity Reaction Status Date / Time No Known Allergies Allergy Verified 12/26/18 11:44 Buprenorphine HCl/Naloxone HCl [Suboxone 8 mg-2 mg Sl Film] 1 each SL TID 12/26/18 Review of Systems - Psychiatric Psychiatric: Abnormal Sleep Pattern, Anhedonia, Anxiety, Change in Appetite, Depression, Difficulty Concentrating, Irritability. absent: Hallucinations, Homicidal Ideation, Paranoia, Suicidal Ideation Mental Status Examination - Personal Presentation Personal Presentation: Looks stated age - Affect Affect: Constricted - Motor Activity Motor Activity: Calm - Reliability in Providing Information Reliability in Providing Information: Good - Speech Speech: Organized - Mood Mood: Depressed, Anxious - Formal Thought Process Formal Thought Process: No Impairment - Cognitive Functions Orientation: Person, Place, Situation, Time Sensorium: Alert Attention/Concentration: Easily distracted Abstract Thinking: As evidence by abstract perception of proverbs Estimate of Intelligence: Average Judgement: Intact, as evidence by: Insight regarding need for hospitalization Memory: Recent intact, as evidence by: Ability to recall events of the day, Remote intact, as evidenced by: Abilit to recall sig. life events - Risk Risk: Withdrawal, Diminished functioning - Strength & Assets Inventory Strength & Assets Inventory: Cooperative - Limitations Limitations: Other DSM 5 DX - DSM 5 DSM 5 Diagnosis: Opioid withdrawal Opioid use d/o - severe Major depressive d/o, severe Cannabis use d/o - moderate - Recommended/Plan of Treatment Treatment Recommendations and Plan of Treatment: Taper with methadone Gabapentin for augmentation if needed As needed medications All risks, benefits and alternatives of the meds discussed, and the pt agreed and understood. Supportive therapy and psychoeducation [facility] for abstinence CBT for relapse prevention Encourage MAT Refer to rehab or IOP, and self-help groups Teach healthy lifestyle methods, i.e. diet, exercise, meditation Smoking cessation with [facility] Nicotine patch if needed 34 min
[2018-12-28 13:32] LABS: BASO # 0.1 K/uL (0.0-0.2); BASO % 0.6 % (0.0-2.0); EOS # 0.1 K/uL (0.0-0.7); EOS % 0.8 % (0.0-4.0); HEMOGLOBIN 13.5 g/dL (12.0-18.0); LYMPH # 0.9 K/uL (1.0-4.3); MEAN CELL VOLUME 90.3 fL (80.0-94.0); MEAN CORPUSCULAR HEMOGLOBIN 30.7 pg (27.0-31.0); MEAN PLATELET VOLUME 8.8 fL (7.2-11.7); MONO # 0.6 K/uL (0.0-0.8); MONO % 5.4 % (0.0-10.0); NEUT % 85.2 % (50.0-75.0); PLATELET COUNT 68 K/uL (130-400); RBC 4.39 Mil/uL (4.40-5.90); RED CELL DISTRIBUTION WIDTH 14.9 % (11.5-14.5); WHITE BLOOD COUNT 11.8 K/uL (4.8-10.8)
[2018-12-28 13:49] LABS: ALB/GLOB RATIO 0.9 (1.0-2.1); ALBUMIN 2.9 g/dL (3.5-5.0); ALT/SGPT 42 U/L (21-72); AST/SGOT 46 U/L (17-59); BLOOD UREA NITROGEN 19 mg/dL (9-20); CALCIUM 8.4 mg/dl (8.6-10.4); GFR NON-AFRICAN AMERICAN > 60
[2018-12-28 13:56] LABS: BANDS 2 % (0-2); EOSINOPHIL 1 % (0-4); LYMPHOCYTE 5 % (20-40); MONOCYTE 7 % (0-10); NEUTROPHIL 85 % (50-75); TOTAL CELLS COUNTED 100
[2018-12-28 13:58] LABS: ANISOCYTOSIS SLIGHT; PLATELET ESTIMATE DECREASED (NORMAL)
[2018-12-28] MEDS ORDERED: Potassium Phosphate 15 MMOLE in Sodium Chloride 0.9% 250 ML IV ONE (16:00)
--- NOTE | 2018-12-28 21:46 | HP ---
CHIEF COMPLAINT: Abdominal pain. HISTORY OF PRESENT ILLNESS: This is a 58-year-old white male with fever, chills, rigor, body aches. The patient has been a drug user and he took few bricks of heroine in the morning. After that, he said he felt cold, clammy, weak and dizzy. The patient was able to walk, able to move all extremities. He felt nauseous, started vomiting while he was in the emergency room, he has generalized pain. He was withdrawing from opiates. He had cough which has been going on for one week and he is awake, alert. He is depressed, he is anxious, he is withdrawn. There is body pain all over the body. There is no chest pain. He has palpitations and dizziness. He has cough, he has thick white sputum production. He denies any history of hematuria or pyuria. He denies any history of dysuria. There is no history of joint pain, trauma, or loss of consciousness. The patient is depressed. He feels anxious as well. He feels lack of happiness and he can easily get upset. He has anhedonia and he also has palpitations, sweating, trembling, weakness and dizziness. There is no history of chest pain. ALLERGIES: UNKNOWN ALLERGIES. CURRENT MEDICATIONS: At home, he is on Suboxone. FAMILY HISTORY: Negative for coronary artery disease, negative for gallbladder or cancer. PAST MEDIAL HISTORY: Nothing significant. Drug abuse. PHYSICAL EXAMINATION: GENERAL: An elderly middle-aged male in no distress, calm, quiet. VITAL SIGNS: Blood pressure 161/90, pulse 52, respiratory rate 30, temperature 98. SKIN: Dry. No rashes. No bruises. No purpura. No petechiae. No ecchymosis. HEENT: Atraumatic, normocephalic. Negative pallor. Negative jaundice. Extraocular movements slightly intact. NECK: Supple. No JVD. No lymph node. No thyromegaly. CHEST WALL: Bilateral symmetrical expansion. No tenderness. No deformity. LUNGS: Bilaterally clear. No rales. No rhonchi. CARDIOVASCULAR SYSTEM: PMI at the fifth intercostal space. S1, S2 regular. No heave, no thrill. ABDOMEN: Soft, nontender. Bowel sounds are positive. RECTAL AND PELVIC: Negative. EXTREMITIES: No clubbing, cyanosis, or edema. CENTRAL NERVOUS SYSTEM: Awake, alert, oriented x3. Cranial nerves II through XII are normal. Power 5/5 x4. Plantars are downgoing. ASSESSMENT: 1. Septicemia. The patient has sepsis, however, his blood pressure is maintaining. His white blood cell is not high, rule out nephrolithiasis. 2. Cirrhosis of liver with hepatosplenomegaly. He denies any history of hepatitis C. According to him, he was diagnosed with cirrhosis of liver. 3. Hypertension. It could be from the withdrawal. 4. Opiates dependence, marijuana abuse. PLAN: Admit. Detailed orders are written. Seen and examined. Jarett Rodriguez MD
--- NOTE | 2018-12-29 00:02 | CP.PCM.PN ---
Subjective - Date & Time of Evaluation Date of Evaluation: 12/28/18 Time of Evaluation: 09:00 - Subjective Subjective: dict Objective - Vital Signs/Intake and Output Vital Signs (last 24 hours): Temp Pulse Resp BP Pulse Ox 98.2 F 41 L 26 H 153/96 H 94 L 12/28/18 20:00 12/28/18 23:00 12/28/18 23:00 12/28/18 22:59 12/28/18 23:00 Intake and Output: 12/28/18 12/29/18 18:59 06:59 Intake Total 2187.5 650.0 Output Total 1050 800 Balance 1137.5 -150.0 - Medications Medications: Current Medications Chlordiazepoxide (Librium) 25 mg PO Q6H PRN PRN Reason: Symptoms of alcohol withdrawl Last Admin: 12/28/18 23:05 Dose: 25 mg Enoxaparin Sodium (Lovenox) 40 mg SC DAILY [facility] Last Admin: 12/28/18 09:06 Dose: 40 mg Folic Acid (Folic Acid) 1 mg PO DAILY [facility] Last Admin: 12/28/18 09:05 Dose: 1 mg Gabapentin (Neurontin) 100 mg PO TID [facility] Last Admin: 12/28/18 17:10 Dose: 100 mg Piperacillin Sod/Tazobactam Sod (Zosyn 3.375 Gm Iv Premix) 3.375 gm in 50 mls @ 100 mls/hr IVPB Q8H SABI; Protocol Last Admin: 12/28/18 21:40 Dose: 100 mls/hr Aztreonam 1 gm/ Sodium (Chloride) 100 mls @ 200 mls/hr IVPB Q8H SABI; Protocol Last Admin: 12/28/18 15:34 Dose: 200 mls/hr Methadone HCl (Methadone) 15 mg PO Q24H SABI; Taper Stop: 01/02/19 08:59 Mirtazapine (Remeron) 15 mg PO HS [facility] Last Admin: 12/28/18 21:40 Dose: 15 mg Multivitamins (Hexavitamin) 1 tab PO DAILY [facility]ABI Last Admin: 12/28/18 09:05 Dose: 1 tab Pantoprazole Sodium (Protonix Inj) 40 mg IVP DAILY [facility] Last Admin: 12/28/18 09:05 Dose: 40 mg Thiamine HCl (Vitamin B1 Tab) 100 mg PO DAILY [facility] Last Admin: 12/28/18 09:05 Dose: 100 mg Trazodone HCl (Desyrel) 50 mg PO HS PRN PRN Reason: Insomnia Last Admin: 12/28/18 23:04 Dose: 50 mg - Labs Labs: 12/28/18 13:26 12/28/18 13:26 PT 13.6 SECONDS (9.7-12.2) H 12/26/18 19:55 INR 1.2 12/26/18 19:55 APTT 34 SECONDS (21-34) 12/26/18 19:55
[2018-12-29] MEDS: Aztreonam 1 GM in Sodium Chloride 0.9% 100 ML IVPB SCH ×3 (00:15→16:21)
--- NOTE | 2018-12-29 05:04 | PN ---
DATE: 12/28/2018 SUBJECTIVE: The patient is afebrile. His blood cultures are positive. He is on antibiotics and he has been seen by ID. Sensitivity is pending. No fever. No chills. His abdominal ultrasound is positive for cirrhosis. CT chest is negative. PHYSICAL EXAMINATION: VITAL SIGNS: Blood pressure 152/96, pulse 75, respiratory rate 23, temperature 98. LUNGS: Clear. CARDIOVASCULAR SYSTEM: S1 and S2, regular. ABDOMEN: Soft. ASSESSMENT: 1. Gram negative septicemia. 2. 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 3. Cirrhosis of the liver due to alcoholism. 4. Alcohol . PLAN: Continue antibiotics. [facility] will follow. Monitor the patient. Jarett Rodriguez MD
[2018-12-29] MEDS: Piperacill/Tazo 3.375gm in Dex 3.375 GM/50 ML BAG IVPB SCH (05:12)
[2018-12-29 06:28] LABS: BASO % 0.1 % (0.0-2.0); EOS % 0.5 % (0.0-4.0); HEMOGLOBIN 14.4 g/dL (12.0-18.0); LYMPH # 0.9 K/uL (1.0-4.3); LYMPH % 10.3 % (20.0-40.0); MEAN CELL VOLUME 90.9 fL (80.0-94.0); MEAN CORPUSCULAR HEMOGLOBIN 30.4 pg (27.0-31.0); MEAN CORPUSCULAR HGB CONC 33.5 g/dL (33.0-37.0); MEAN PLATELET VOLUME 9.3 fL (7.2-11.7); MONO # 0.5 K/uL (0.0-0.8); MONO % 5.9 % (0.0-10.0); NEUT # 7.7 K/uL (1.8-7.0); NEUT % 83.2 % (50.0-75.0); RBC 4.72 Mil/uL (4.40-5.90); RED CELL DISTRIBUTION WIDTH 15.3 % (11.5-14.5); WHITE BLOOD COUNT 9.2 K/uL (4.8-10.8)
[2018-12-29 06:42] LABS: ALB/GLOB RATIO 0.9 (1.0-2.1); ALT/SGPT 39 U/L (21-72); AST/SGOT 44 U/L (17-59); BLOOD UREA NITROGEN 15 mg/dL (9-20); CALCIUM 8.5 mg/dl (8.6-10.4); GFR NON-AFRICAN AMERICAN > 60
[2018-12-29] MEDS: Enoxaparin 40 mg Syringe SC SCH (10:22)
[2018-12-29] MEDS: Multiple Vitamins Tab PO SCH (10:24)
[2018-12-29] MEDS: Potassium Chloride 20 mEq/15 ml LIQ UD PO ONE ×2 (11:03→11:30)
--- NOTE | 2018-12-29 12:08 | CP.PCM.PN ---
Subjective - Date & Time of Evaluation Date of Evaluation: 12/29/18 Time of Evaluation: 08:00 - Subjective Subjective: serratia in blood repeat cultures pending cont rx IV for 14 days min check echo Objective - Vital Signs/Intake and Output Vital Signs (last 24 hours): Temp Pulse Resp BP Pulse Ox 98.3 F 38 L 27 H 140/85 97 12/29/18 08:00 12/29/18 08:00 12/29/18 08:00 12/29/18 07:59 12/29/18 08:00 Intake and Output: 12/29/18 12/29/18 06:59 18:59 Intake Total 1125.0 100 Output Total 1800 Balance -675 100 - Medications Medications: Current Medications Chlordiazepoxide (Librium) 25 mg PO Q6H PRN PRN Reason: Symptoms of alcohol withdrawl Last Admin: 12/28/18 23:05 Dose: 25 mg Enoxaparin Sodium (Lovenox) 40 mg SC DAILY [facility] Last Admin: 12/29/18 10:22 Dose: 40 mg Folic Acid (Folic Acid) 1 mg PO DAILY [facility] Last Admin: 12/29/18 10:25 Dose: 1 mg Gabapentin (Neurontin) 100 mg PO TID [facility]I Last Admin: 12/29/18 10:22 Dose: 100 mg Piperacillin Sod/Tazobactam Sod (Zosyn 3.375 Gm Iv Premix) 3.375 gm in 50 mls @ 100 mls/hr IVPB Q8H SABI; Protocol Last Admin: 12/29/18 05:12 Dose: 100 mls/hr Aztreonam 1 gm/ Sodium (Chloride) 100 mls @ 200 mls/hr IVPB Q8H SABI; Protocol Last Admin: 12/29/18 07:34 Dose: 200 mls/hr Potassium Chloride (Potassium Chloride 20 Meq/100 Ml) 20 meq in 100 mls @ 50 mls/hr IVPB Q2H SABI Stop: 12/29/18 14:59 Last Admin: 12/29/18 11:03 Dose: 50 mls/hr Methadone HCl (Methadone) 15 mg PO Q24H SABI; Taper Stop: 01/02/19 08:59 Last Admin: 12/29/18 10:23 Dose: 15 mg Mirtazapine (Remeron) 15 mg PO [facility] Last Admin: 12/28/18 21:40 Dose: 15 mg Multivitamins (Hexavitamin) 1 tab PO DAILY [facility] Last Admin: 12/29/18 10:24 Dose: 1 tab Pantoprazole Sodium (Protonix Inj) 40 mg IVP DAILY [facility] Last Admin: 12/29/18 10:21 Dose: 40 mg Thiamine HCl (Vitamin B1 Tab) 100 mg PO DAILY [facility] Last Admin: 12/29/18 10:22 Dose: 100 mg Trazodone HCl (Desyrel) 50 mg PO HS PRN PRN Reason: Insomnia Last Admin: 12/28/18 23:04 Dose: 50 mg - Labs Labs: 12/29/18 06:22 12/29/18 06:22 PT 13.6 SECONDS (9.7-12.2) H 12/26/18 19:55 INR 1.2 12/26/18 19:55 APTT 34 SECONDS (21-34) 12/26/18 19:55 - Constitutional Appears: Non-toxic, No Acute Distress, Chronically Ill - Head Exam Head Exam: ATRAUMATIC, NORMAL INSPECTION, NORMOCEPHALIC - Eye Exam Eye Exam: EOMI, Normal appearance, PERRL Pupil Exam: NORMAL ACCOMODATION, PERRL - ENT Exam ENT Exam: Mucous Membranes Moist, Normal Exam - Neck Exam Neck Exam: Full ROM, Normal Inspection. absent: Lymphadenopathy - Respiratory Exam Respiratory Exam: Clear to Ausculation Bilateral, NORMAL BREATHING PATTERN - Cardiovascular Exam Cardiovascular Exam: REGULAR RHYTHM, +S1, +S2. absent: Murmur - GI/Abdominal Exam GI & Abdominal Exam: Soft, Normal Bowel Sounds. absent: Tenderness - Rectal Exam Rectal Exam: Deferred - Exam Exam: NORMAL INSPECTION - Extremities Exam Extremities Exam: Full ROM, Normal Capillary Refill, Normal Inspection. absent: Joint Swelling, Pedal Edema - Back Exam Back Exam: NORMAL INSPECTION - Neurological Exam Neurological Exam: Alert, Awake, CN II-XII Intact, Normal Gait, Oriented x3 - Psychiatric Exam Psychiatric exam: Normal Affect, Normal Mood - Skin Skin Exam: Dry, Intact, Normal Color, Warm Assessment and Plan (1) Opioid abuse Status: Acute (2) Sepsis Status: Acute - Assessment and Plan (Free Text) Assessment: cont IV Azactam' repeat cultures
--- NOTE | 2018-12-29 12:22 | PCM.PYCHPN ---
Psychiatric Progress Note - Psychiatric Progress Note Patient seen today, length of contact: 16 min Patient Chief Complaint: "Tired" Problems Identified/Issues Discussed: The pt is seen, chart reviewed, case discussed with staff. Support and psychoeducation given Pt is improving slowly and needs more time, still has ongoing symptoms. No SEs from medications, risks discussed. Medication Change: Yes (detox changes daily) Medical Record Reviewed: Yes Mental Status Examination - Cognitive Function Orientation: Person, Place, Situation, Time Memory: Intact Attention: Poor Concentration: Poor Association: WNL Fund of Knowledge: WNL - Mood Mood: Depressed, Anxious - Affect Affect: Constricted - Speech Speech: Appropriate - Formal Thought Process Formal Thought Process: No Impairment - Suicidal Ideation Suicidal Ideation: No - Homicidal Ideation Homicidal Ideation: No Goal/Treatment Plan - Goal/Treatment Plan Need for Continued Stay: Other (medical) Progress Toward Problem(s) and Goals/Treatment Plan: Taper with methadone Gabapentin for augmentation if needed As needed medications All risks, benefits and alternatives of the meds discussed, and the pt agreed and understood. Supportive therapy and psychoeducation MD for abstinence CBT for relapse prevention Encourage MAT Refer to rehab or IOP, and self-help groups Teach healthy lifestyle methods, i.e. diet, exercise, meditation Smoking cessation with MD Nicotine patch if needed Psych will sign off. Pls call if there is a change
--- NOTE | 2018-12-29 22:35 | CP.PCM.PN ---
Subjective - Date & Time of Evaluation Date of Evaluation: 12/29/18 Time of Evaluation: 08:20 - Subjective Subjective: dict Objective - Vital Signs/Intake and Output Vital Signs (last 24 hours): Temp Pulse Resp BP Pulse Ox 98 F 46 L 24 133/85 95 12/29/18 16:30 12/29/18 20:02 12/29/18 16:30 12/29/18 16:30 12/29/18 16:30 Intake and Output: 12/29/18 12/30/18 18:59 06:59 Intake Total 100 500 Balance 100 500 - Medications Medications: Current Medications Chlordiazepoxide (Librium) 25 mg PO Q6H PRN PRN Reason: Symptoms of alcohol withdrawl Last Admin: 12/28/18 23:05 Dose: 25 mg Enoxaparin Sodium (Lovenox) 40 mg SC DAILY [facility] Last Admin: 12/29/18 10:22 Dose: 40 mg Folic Acid (Folic Acid) 1 mg PO DAILY [facility] Last Admin: 12/29/18 10:25 Dose: 1 mg Gabapentin (Neurontin) 100 mg PO TID [facility] Last Admin: 12/29/18 17:25 Dose: 100 mg Aztreonam 1 gm/ Sodium (Chloride) 100 mls @ 200 mls/hr IVPB Q8H [facility]; Protocol Last Admin: 12/29/18 16:21 Dose: 200 mls/hr Methadone HCl (Methadone) 15 mg PO Q24H [facility]; Taper Stop: 01/02/19 08:59 Last Admin: 12/29/18 10:23 Dose: 15 mg Mirtazapine (Remeron) 15 mg PO HS [facility] Last Admin: 12/29/18 21:18 Dose: 15 mg Multivitamins (Hexavitamin) 1 tab PO DAILY [facility] Last Admin: 12/29/18 10:24 Dose: 1 tab Pantoprazole Sodium (Protonix Inj) 40 mg IVP DAILY [facility] Last Admin: 12/29/18 10:21 Dose: 40 mg Thiamine HCl (Vitamin B1 Tab) 100 mg PO DAILY [facility] Last Admin: 12/29/18 10:22 Dose: 100 mg Trazodone HCl (Desyrel) 50 mg PO HS PRN PRN Reason: Insomnia Last Admin: 12/28/18 23:04 Dose: 50 mg - Labs Labs: 12/29/18 06:22 12/29/18 06:22 PT 13.6 SECONDS (9.7-12.2) H 12/26/18 19:55 INR 1.2 12/26/18 19:55 APTT 34 SECONDS (21-34) 12/26/18 19:55
[2018-12-29] MEDS ORDERED: Potassium Chloride 20 mEq/15 ml LIQ UD PO ONE (22:45)
[2018-12-30] MEDS: Aztreonam 1 GM in Sodium Chloride 0.9% 100 ML IVPB SCH ×3 (00:17→17:38)
--- NOTE | 2018-12-30 05:42 | CP.PCM.CON ---
History of Present Illness - History of Present Illness History of Present Illness: Patient seen and evaluated Bradycardia Medication induced Vs. Organic No bradyv\\cardia related symptoms Will investigate Pt is a 58 y/o male with hx of HIV (questionable), Hep C, ETOH abuser, Active Heroine abuser, Liver Cirrhosis, previously incarcerated brought to ER by sister who reports that she found him at her neighbors house shaking and "looked ill" and minimally responsive. She believes he was shooting up heroine. As per EMS, pt was given Narcan and become more alert. On ED arrival he was complaining of abdominal pain and vomiting. Also complaining of cough. Noted to be septic shock --hypothermic, WBC 0.7, hypotensive unresponsive to fluids and started on levophed. Most of history obtained through sister and mother who are at bedside. They report that he uses heroine often and drinks alcohol regularly often going into withdrawal if he doesn't drink for a while. Physical Exam - Constitutional Appears: Toxic, Older Than Stated Age - Eye Exam Eye Exam: EOMI, PERRL - ENT Exam ENT Exam: Mucous Membranes Dry - Respiratory Exam Respiratory Exam: Clear to Auscultation Bilateral. absent: Rales, Wheezes - Cardiovascular Exam Cardiovascular Exam: Tachycardia, +S1, +S2. absent: Systolic Murmur - GI/Abdominal Exam GI & Abdominal Exam: Normal Bowel Sounds, Soft, Tenderness (RUQ on deep palpation, [place] negative) - Extremities Exam Extremities exam: Positive for: normal capillary refill, pedal pulses present. Negative for: pedal edema - Neurological Exam Neurological exam: Alert (lethargic, responds to name only) - Psychiatric Exam Psychiatric exam: Flat Affect - Skin Skin Exam: Normal Color Assessment & Plan - Assessment and Plan (Free Text) Assessment: Pt is a 58 y/o male with hx of HIV (questionable), Hep C, ETOH abuser, Active Heroine abuser, Liver Cirrhosis, previously incarcerated brought to ER by sister who reports that she found him at her neighbors house shaking and "looked ill" and minimally responsive. She believes he was shooting up heroine. As per EMS, pt was given Narcan and become more alert. On ED arrival he was complaining of abdominal pain and vomiting. Also complaining of cough. Noted to be septic shock, Code Sepsis initiated--hypothermic, WBC 0.7, hypotensive unresponsive to fluids and started on levophed. Most of history obtained through sister and mother who are at bedside. They report that he uses heroine often and drinks alcohol regularly often going into withdrawal if he doesn't drink for a while. Neuro - Improved Cardio - Bradycardia improving GI - Liver Cirrhosis Renal - BUN/Crea stable - Monitor UP Heme - H/H stbale - Platelets 80 Non Cardiac chest pain Bradycardia resolving Will monitor Past Patient History - Infectious Disease Hx of Infectious Diseases: None - Past Social History Smoking Status: Heavy Smoker > 10 Cigarettes Daily - CARDIAC Hx Hypertension: No - PULMONARY Hx Tuberculosis: No - NEUROLOGICAL Hx Seizures: No - HEMATOLOGICAL/ONCOLOGICAL Hx Human Immunodeficiency Virus (HIV): No - MUSCULOSKELETAL/RHEUMATOLOGICAL Hx Falls: No - GENITOURINARY/GYNECOLOGICAL Hx Sexually Transmitted Disorders: No - PSYCHIATRIC Hx Substance Use: Yes - SURGICAL HISTORY Hx Surgeries: Yes Other/Comment: L eye - ANESTHESIA Hx Anesthesia: No Hx Anesthesia Reactions: No Has any member of the family had a problem w/ anesthesia?: No (as per patient's mother) Meds Allergies/Adverse Reactions: Allergies Allergy/AdvReac Type Severity Reaction Status Date / Time No Known Allergies Allergy Verified 12/26/18 11:44 - Medications Medications: Current Medications Chlordiazepoxide (Librium) 25 mg PO Q6H PRN PRN Reason: Symptoms of alcohol withdrawl Last Admin: 12/28/18 23:05 Dose: 25 mg Enoxaparin Sodium (Lovenox) 40 mg SC DAILY [facility] Last Admin: 12/29/18 10:22 Dose: 40 mg Folic Acid (Folic Acid) 1 mg PO DAILY [facility] Last Admin: 12/29/18 10:25 Dose: 1 mg Gabapentin (Neurontin) 100 mg PO TID [facility] Last Admin: 12/29/18 17:25 Dose: 100 mg Aztreonam 1 gm/ Sodium (Chloride) 100 mls @ 200 mls/hr IVPB Q8H [facility]; Protocol Last Admin: 12/30/18 00:17 Dose: 200 mls/hr Methadone HCl (Methadone) 15 mg PO Q24H [facility]; Taper Stop: 01/02/19 08:59 Last Admin: 12/29/18 10:23 Dose: 15 mg Mirtazapine (Remeron) 15 mg PO HS [facility] Last Admin: 12/29/18 21:18 Dose: 15 mg Multivitamins (Hexavitamin) 1 tab PO DAILY [facility] Last Admin: 12/29/18 10:24 Dose: 1 tab Pantoprazole Sodium (Protonix Inj) 40 mg IVP DAILY [facility] Last Admin: 12/29/18 10:21 Dose: 40 mg Thiamine HCl (Vitamin B1 Tab) 100 mg PO DAILY [facility] Last Admin: 12/29/18 10:22 Dose: 100 mg Trazodone HCl (Desyrel) 50 mg PO HS PRN PRN Reason: Insomnia Last Admin: 12/28/18 23:04 Dose: 50 mg Results - Vital Signs Recent Vital Signs: Last Vital Signs Temp 97.9 F 12/29/18 23:33 Pulse 42 L 12/30/18 04:00 Resp 20 12/29/18 23:33 BP 140/85 12/29/18 23:33 Pulse Ox 98 12/29/18 23:33 - Labs Result Diagrams: 12/29/18 06:22 12/29/18 06:22 Labs: Laboratory Results - last 24 hr 12/26/18 12/29/18 12/29/18 19:55 06:22 06:22 WBC 9.2 RBC 4.72 Hgb 14.4 Hct 42.9 MCV 90.9 MCH 30.4 MCHC 33.5 RDW 15.3 H Plt Count 74 L MPV 9.3 Neut % (Auto) 83.2 H Lymph % (Auto) 10.3 L [place] % (Auto) 5.9 Eos % (Auto) 0.5 Baso % (Auto) 0.1 Neut # (Auto) 7.7 H Lymph # (Auto) 0.9 L [place] # (Auto) 0.5 Eos # (Auto) 0.0 Baso # (Auto) 0.0 Sodium 135 Potassium 3.2 L Chloride 103 Carbon Dioxide 26 Anion Gap 9 L BUN 15 Creatinine 0.7 L Est GFR ( Amer) > 60 Est GFR (Non-Af Amer) > 60 Random Glucose 105 Calcium 8.5 L Phosphorus 2.8 Magnesium 1.9 Total Bilirubin 0.8 AST 44 ALT 39 Alkaline Phosphatase 116 Total Protein 6.2 L Albumin 3.0 L Globulin 3.2 Albumin/Globulin Ratio 0.9 L HIV 1&2 Ag/Ab, 4th Gen Nonreactive
[2018-12-30 08:36] LABS: % CD4 (T HELPER CELL) 23 Percent (30-61); % CD8 (SUPPRESSOR T CELL) 40 Percent (12-42); ABSOLUTE CD4 CELLS 31 Cells/mcL (490-1740); ABSOLUTE CD8 CELLS 54 Cells/mcL (180-1170); ABSOLUTE LYMPHOCYTES 134 Cells/mcL (850-3900); HELPER/SUPPRESSOR RATIO 0.57 Ratio (0.86-5.00)
[2018-12-30] MEDS: Multiple Vitamins Tab PO SCH (10:27)
[2018-12-30] MEDS: Enoxaparin 40 mg Syringe SC SCH (10:30)
--- NOTE | 2018-12-30 13:01 | CP.PCM.PN ---
Subjective - Date & Time of Evaluation Date of Evaluation: 12/30/18 Time of Evaluation: 10:00 - Subjective Subjective: gram neg sepsis await echo and repeat cultures cont IV rx min 14 days Objective - Vital Signs/Intake and Output Vital Signs (last 24 hours): Temp Pulse Resp BP Pulse Ox 98 F 45 L 20 159/86 H 93 L 12/30/18 07:57 12/30/18 07:57 12/30/18 07:57 12/30/18 07:57 12/30/18 07:57 Intake and Output: 12/30/18 12/30/18 06:59 18:59 Intake Total 500 Balance 500 - Medications Medications: Current Medications Chlordiazepoxide (Librium) 25 mg PO Q6H PRN PRN Reason: Symptoms of alcohol withdrawl Last Admin: 12/28/18 23:05 Dose: 25 mg Enoxaparin Sodium (Lovenox) 40 mg SC DAILY [facility] Last Admin: 12/30/18 10:30 Dose: 40 mg Folic Acid (Folic Acid) 1 mg PO DAILY [facility] Last Admin: 12/30/18 10:30 Dose: 1 mg Gabapentin (Neurontin) 100 mg PO TID [facility] Last Admin: 12/30/18 10:30 Dose: 100 mg Aztreonam 1 gm/ Sodium (Chloride) 100 mls @ 200 mls/hr IVPB Q8H [facility]; Protocol Last Admin: 12/30/18 10:28 Dose: 200 mls/hr Methadone HCl (Methadone) 10 mg PO Q24H [facility]; Taper Stop: 01/02/19 08:59 Last Admin: 12/30/18 10:27 Dose: 10 mg Mirtazapine (Remeron) 15 mg PO HS [facility] Last Admin: 12/29/18 21:18 Dose: 15 mg Multivitamins (Hexavitamin) 1 tab PO DAILY [facility] Last Admin: 12/30/18 10:27 Dose: 1 tab Pantoprazole Sodium (Protonix Inj) 40 mg IVP DAILY [facility] Last Admin: 12/30/18 10:30 Dose: 40 mg Thiamine HCl (Vitamin B1 Tab) 100 mg PO DAILY [facility] Last Admin: 12/30/18 10:26 Dose: 100 mg Trazodone HCl (Desyrel) 50 mg PO HS PRN PRN Reason: Insomnia Last Admin: 12/28/18 23:04 Dose: 50 mg - Labs Labs: 04/22/19 06:22 12/29/18 06:22 PT 13.6 SECONDS (9.7-12.2) H 12/26/18 19:55 INR 1.2 12/26/18 19:55 APTT 34 SECONDS (21-34) 12/26/18 19:55 - Constitutional Appears: No Acute Distress, Chronically Ill - Head Exam Head Exam: ATRAUMATIC, NORMAL INSPECTION, NORMOCEPHALIC - Eye Exam Eye Exam: EOMI, Normal appearance, PERRL Pupil Exam: NORMAL ACCOMODATION, PERRL - ENT Exam ENT Exam: Mucous Membranes Moist, Normal Exam - Neck Exam Neck Exam: Full ROM, Normal Inspection. absent: Lymphadenopathy - Respiratory Exam Respiratory Exam: Clear to Ausculation Bilateral, NORMAL BREATHING PATTERN - Cardiovascular Exam Cardiovascular Exam: REGULAR RHYTHM, +S1, +S2. absent: Murmur - GI/Abdominal Exam GI & Abdominal Exam: Soft, Normal Bowel Sounds. absent: Tenderness - Rectal Exam Rectal Exam: Deferred - Exam Exam: NORMAL INSPECTION - Extremities Exam Extremities Exam: Full ROM, Normal Capillary Refill, Normal Inspection. absent: Joint Swelling, Pedal Edema - Back Exam Back Exam: NORMAL INSPECTION - Neurological Exam Neurological Exam: Alert, Awake, CN II-XII Intact, Normal Gait, Oriented x3 - Psychiatric Exam Psychiatric exam: Normal Affect, Normal Mood - Skin Skin Exam: Dry, Intact, Normal Color, Warm Assessment and Plan (1) Opioid abuse Status: Acute (2) Sepsis Status: Acute - Assessment and Plan (Free Text) Assessment: gram neg sepsis await echo cont IV antibiotics min 14 days
--- NOTE | 2018-12-30 21:31 | CP.PCM.PN ---
Subjective - Date & Time of Evaluation Date of Evaluation: 12/30/18 Time of Evaluation: 09:00 - Subjective Subjective: dict Objective - Vital Signs/Intake and Output Vital Signs (last 24 hours): Temp Pulse Resp BP Pulse Ox 97.8 F 42 L 20 129/73 97 12/30/18 15:00 12/30/18 15:00 12/30/18 15:00 12/30/18 15:00 12/30/18 15:00 - Medications Medications: Current Medications Chlordiazepoxide (Librium) 25 mg PO Q6H PRN PRN Reason: Symptoms of alcohol withdrawl Last Admin: 12/28/18 23:05 Dose: 25 mg Enoxaparin Sodium (Lovenox) 40 mg SC DAILY [facility] Last Admin: 12/30/18 10:30 Dose: 40 mg Folic Acid (Folic Acid) 1 mg PO DAILY [facility] Last Admin: 12/30/18 10:30 Dose: 1 mg Gabapentin (Neurontin) 100 mg PO TID [facility] Last Admin: 12/30/18 17:39 Dose: 100 mg Aztreonam 1 gm/ Sodium (Chloride) 100 mls @ 200 mls/hr IVPB Q8H [facility]; Protocol Last Admin: 12/30/18 17:38 Dose: 200 mls/hr Methadone HCl (Methadone) 10 mg PO Q24H [facility]; Taper Stop: 01/02/19 08:59 Last Admin: 12/30/18 10:27 Dose: 10 mg Mirtazapine (Remeron) 15 mg PO HS [facility] Last Admin: 12/29/18 21:18 Dose: 15 mg Multivitamins (Hexavitamin) 1 tab PO DAILY [facility] Last Admin: 12/30/18 10:27 Dose: 1 tab Pantoprazole Sodium (Protonix Inj) 40 mg IVP DAILY [facility] Last Admin: 12/30/18 10:30 Dose: 40 mg Thiamine HCl (Vitamin B1 Tab) 100 mg PO DAILY [facility] Last Admin: 12/30/18 10:26 Dose: 100 mg Trazodone HCl (Desyrel) 50 mg PO HS PRN PRN Reason: Insomnia Last Admin: 12/28/18 23:04 Dose: 50 mg - Labs Labs: 12/29/18 06:22 12/29/18 06:22 PT 13.6 SECONDS (9.7-12.2) H 12/26/18 19:55 INR 1.2 12/26/18 19:55 APTT 34 SECONDS (21-34) 12/26/18 19:55
[2018-12-31] MEDS: Aztreonam 1 GM in Sodium Chloride 0.9% 100 ML IVPB SCH ×2 (00:31→08:03)
--- NOTE | 2018-12-31 00:57 | PN ---
DATE: 12/30/2018 SUBJECTIVE: Eamon Alamo is feeling weak. He has pain all over the body. He is afebrile. He is being seen by Psych. He has a history of substance abuse including alcoholism and heroin. No fever. No chills. PHYSICAL EXAMINATION: VITAL SIGNS: Blood pressure 129/73, pulse 42, respiratory rate 20, temperature 97.8. LUNGS: Clear. No rales. No rhonchi. CARDIOVASCULAR SYSTEM: S1 and S2, regular. No heave. No thrill. ABDOMEN: Soft. Nontender. Bowel sounds are positive. ASSESSMENT: 1. Opiate and alcohol dependence and withdrawal. The patient is on medication. 2. Pancytopenia, which was mostly induced by alcohol. The patient's hemoglobin and hematocrit are stable now. 3. Hypokalemia. 4. Dehydration. PLAN: Continue to monitor the patient. The patient received potassium supplementation. Close followup. Jarett Rodriguez MD
--- NOTE | 2018-12-31 03:36 | CARD ---
APPROVED REPORT Date of service: 12/26/2018 EKG Measurement Heart [id number] <Conclusion> Normal sinus rhythm Left anterior fascicular block Abnormal ECG
[2018-12-31 08:17] VITALS: RESP 20
[2018-12-31] MEDS: Multiple Vitamins Tab PO SCH (10:45)
[2018-12-31] MEDS: Enoxaparin 40 mg Syringe SC SCH (10:45)
--- NOTE | 2018-12-31 11:41 | PCM.PYCHPN ---
Psychiatric Progress Note - Psychiatric Progress Note Patient seen today, length of contact: 15 min Patient Chief Complaint: "I can't sleep well" Problems Identified/Issues Discussed: The pt is seen, chart reviewed, case discussed with staff. Support and psychoeducation given He wants to go to a rehab as he is homeless and wants to stay clean No wdw sxs much, mild only Not depressed or suicidal anymore No SEs from meds Medication Change: Yes (detox changes daily) Medical Record Reviewed: Yes Mental Status Examination - Cognitive Function Orientation: Person, Place, Situation, Time Memory: Intact Attention: Poor Concentration: Poor Association: WNL Fund of Knowledge: WNL - Mood Mood: Depressed, Anxious - Affect Affect: Constricted - Speech Speech: Appropriate - Formal Thought Process Formal Thought Process: No Impairment - Suicidal Ideation Suicidal Ideation: No - Homicidal Ideation Homicidal Ideation: No Goal/Treatment Plan - Goal/Treatment Plan Need for Continued Stay: Other (medical) Progress Toward Problem(s) and Goals/Treatment Plan: Taper with methadone Gabapentin for augmentation if needed As needed medications All risks, benefits and alternatives of the meds discussed, and the pt agreed and understood. Supportive therapy and psychoeducation IN for abstinence CBT for relapse prevention Encourage MAT Refer to rehab or IOP, and self-help groups Teach healthy lifestyle methods, i.e. diet, exercise, meditation Smoking cessation with IN Nicotine patch if needed Psych will sign off. Pls call if there is a change
--- NOTE | 2018-12-31 16:06 | CP.PCM.PN ---
Subjective - Date & Time of Evaluation Date of Evaluation: 12/31/18 Time of Evaluation: 08:00 - Subjective Subjective: c/o malar rash not generalized no itch labs reviewed orders written Objective - Vital Signs/Intake and Output Vital Signs (last 24 hours): Temp Pulse Resp BP Pulse Ox 98.1 F 49 L 20 116/66 96 12/31/18 15:00 12/31/18 15:00 12/31/18 15:00 12/31/18 15:00 12/31/18 15:00 Intake and Output: 12/31/18 12/31/18 06:59 18:59 Intake Total 480 Output Total 500 Balance -500 480 - Medications Medications: Current Medications Chlordiazepoxide (Librium) 25 mg PO Q6H PRN PRN Reason: Symptoms of alcohol withdrawl Last Admin: 12/28/18 23:05 Dose: 25 mg Enoxaparin Sodium (Lovenox) 40 mg SC DAILY [facility] Last Admin: 12/31/18 10:45 Dose: 40 mg Folic Acid (Folic Acid) 1 mg PO DAILY [facility] Last Admin: 12/31/18 10:45 Dose: 1 mg Aztreonam 1 gm/ Sodium (Chloride) 100 mls @ 200 mls/hr IVPB Q8H [facility]; Protocol Last Admin: 12/31/18 08:03 Dose: 200 mls/hr Methadone HCl (Methadone) 5 mg PO Q24H [facility]; Taper Stop: 01/02/19 08:59 Last Admin: 12/31/18 08:03 Dose: 5 mg Mirtazapine (Remeron) 15 mg PO HS [facility] Last Admin: 12/30/18 22:08 Dose: 15 mg Multivitamins (Hexavitamin) 1 tab PO DAILY [facility] Last Admin: 12/31/18 10:45 Dose: 1 tab Pantoprazole Sodium (Protonix Inj) 40 mg IVP DAILY [facility] Last Admin: 12/31/18 10:44 Dose: 40 mg Quetiapine Fumarate (Seroquel) 50 mg PO HS [facility] Thiamine HCl (Vitamin B1 Tab) 100 mg PO DAILY [facility] Last Admin: 12/31/18 10:45 Dose: 100 mg Trazodone HCl (Desyrel) 50 mg PO HS PRN PRN Reason: Insomnia Last Admin: 12/30/18 22:08 Dose: 50 mg - Labs Labs: 12/29/18 06:22 12/29/18 06:22 PT 13.6 SECONDS (9.7-12.2) H 12/26/18 19:55 INR 1.2 12/26/18 19:55 APTT 34 SECONDS (21-34) 12/26/18 19:55 - Constitutional Appears: Well - Head Exam Head Exam: ATRAUMATIC, NORMAL INSPECTION, NORMOCEPHALIC - Eye Exam Eye Exam: EOMI, Normal appearance, PERRL Pupil Exam: NORMAL ACCOMODATION, PERRL - ENT Exam ENT Exam: Mucous Membranes Moist, Normal Exam - Neck Exam Neck Exam: Full ROM, Normal Inspection. absent: Lymphadenopathy - Respiratory Exam Respiratory Exam: Clear to Ausculation Bilateral, NORMAL BREATHING PATTERN - Cardiovascular Exam Cardiovascular Exam: REGULAR RHYTHM, +S1, +S2. absent: Murmur - GI/Abdominal Exam GI & Abdominal Exam: Soft, Normal Bowel Sounds. absent: Tenderness - Rectal Exam Rectal Exam: Deferred - Extremities Exam Extremities Exam: Full ROM, Normal Capillary Refill, Normal Inspection. absent: Joint Swelling, Pedal Edema - Back Exam Back Exam: NORMAL INSPECTION - Neurological Exam Neurological Exam: Alert, Awake, CN II-XII Intact, Normal Gait, Oriented x3 - Psychiatric Exam Psychiatric exam: Normal Affect, Normal Mood - Skin Skin Exam: Dry, Intact Assessment and Plan (1) Opioid abuse Status: Acute (2) Sepsis Status: Acute - Assessment and Plan (Free Text) Assessment: gram neg sepsis drug withdrawl chronic opiod use/ IVDU cont IV Merrem
[2018-12-31] MEDS: Meropenem 1 GM in Sodium Chloride 0.9% 100 ML IVPB SCH (18:12)
--- NOTE | 2018-12-31 22:19 | CP.PCM.PN ---
Subjective - Date & Time of Evaluation Date of Evaluation: 12/31/18 Time of Evaluation: 08:15 - Subjective Subjective: dict Objective - Vital Signs/Intake and Output Vital Signs (last 24 hours): Temp Pulse Resp BP Pulse Ox 98.1 F 49 L 20 116/66 96 12/31/18 15:00 12/31/18 20:06 12/31/18 15:00 12/31/18 15:00 12/31/18 15:00 Intake and Output: 12/31/18 01/01/19 18:59 06:59 Intake Total 480 600 Balance 480 600 - Medications Medications: Current Medications Chlordiazepoxide (Librium) 25 mg PO Q6H PRN PRN Reason: Symptoms of alcohol withdrawl Last Admin: 12/28/18 23:05 Dose: 25 mg Enoxaparin Sodium (Lovenox) 40 mg SC DAILY [facility] Last Admin: 12/31/18 10:45 Dose: 40 mg Folic Acid (Folic Acid) 1 mg PO DAILY [facility] Last Admin: 12/31/18 10:45 Dose: 1 mg Meropenem 1 gm/ Sodium (Chloride) 100 mls @ 100 mls/hr IVPB Q8H [facility]; Protocol Last Admin: 12/31/18 18:12 Dose: 100 mls/hr Methadone HCl (Methadone) 5 mg PO Q24H [facility]; Taper Stop: 01/02/19 08:59 Last Admin: 12/31/18 08:03 Dose: 5 mg Mirtazapine (Remeron) 15 mg PO HS [facility] Last Admin: 12/31/18 21:06 Dose: 15 mg Multivitamins (Hexavitamin) 1 tab PO DAILY [facility] Last Admin: 12/31/18 10:45 Dose: 1 tab Pantoprazole Sodium (Protonix Inj) 40 mg IVP DAILY [facility] Last Admin: 12/31/18 10:44 Dose: 40 mg Quetiapine Fumarate (Seroquel) 50 mg PO HS [facility] Last Admin: 12/31/18 21:06 Dose: 50 mg Thiamine HCl (Vitamin B1 Tab) 100 mg PO DAILY [facility] Last Admin: 12/31/18 10:45 Dose: 100 mg Trazodone HCl (Desyrel) 50 mg PO HS PRN PRN Reason: Insomnia Last Admin: 12/30/18 22:08 Dose: 50 mg - Labs Labs: 12/29/18 06:22 12/29/18 06:22 PT 13.6 SECONDS (9.7-12.2) H 12/26/18 19:55 INR 1.2 12/26/18 19:55 APTT 34 SECONDS (21-34) 12/26/18 19:55
[2019-01-01] MEDS: Meropenem 1 GM in Sodium Chloride 0.9% 100 ML IVPB SCH ×3 (01:06→16:44)
--- NOTE | 2019-01-01 07:39 | CP.PCM.PN ---
Subjective - Date & Time of Evaluation Date of Evaluation: 12/30/18 Time of Evaluation: 17:20 - Subjective Subjective: Patient seen and evaluated 'Comfortable No cardiac events Physical Exam - Constitutional Appears: Toxic, Older Than Stated Age - Eye Exam Eye Exam: EOMI, PERRL - ENT Exam ENT Exam: Mucous Membranes Dry - Respiratory Exam Respiratory Exam: Clear to Auscultation Bilateral. absent: Rales, Wheezes - Cardiovascular Exam Cardiovascular Exam: Tachycardia, +S1, +S2. absent: Systolic Murmur - GI/Abdominal Exam GI & Abdominal Exam: Normal Bowel Sounds, Soft, Tenderness (RUQ on deep palpation, [place] negative) - Extremities Exam Extremities exam: Positive for: normal capillary refill, pedal pulses present. Negative for: pedal edema - Neurological Exam Neurological exam: Alert (lethargic, responds to name only) - Psychiatric Exam Psychiatric exam: Flat Affect - Skin Skin Exam: Normal Color Assessment & Plan - Assessment and Plan (Free Text) Assessment: Pt is a 58 y/o male with hx of HIV (questionable), Hep C, ETOH abuser, Active Heroine abuser, Liver Cirrhosis, previously incarcerated brought to ER by sister who reports that she found him at her neighbors house shaking and "looked ill" and minimally responsive. She believes he was shooting up heroine. As per EMS, pt was given Narcan and become more alert. On ED arrival he was complaining of abdominal pain and vomiting. Also complaining of cough. Noted to be septic shock, Code Sepsis initiated--hypothermic, WBC 0.7, hypotensive unresponsive to fluids and started on levophed. Most of history obtained through sister and mother who are at bedside. They report that he uses heroine often and drinks alcohol regularly often going into withdrawal if he doesn't drink for a while. Neuro - Improved Cardio - Bradycardia improving GI - Liver Cirrhosis Renal - BUN/Crea stable - Monitor UP Heme - H/H stbale - Platelets 80 Non Cardiac chest pain Bradycardia resolving Will monitor Objective - Vital Signs/Intake and Output Vital Signs (last 24 hours): Temp Pulse Resp BP Pulse Ox 97.8 F 53 L 20 135/77 96 12/31/18 23:00 01/01/19 04:24 12/31/18 23:00 12/31/18 23:00 12/31/18 23:00 Intake and Output: 01/01/19 01/01/19 06:59 18:59 Intake Total 820 Output Total 550 Balance 270 - Medications Medications: Current Medications Chlordiazepoxide (Librium) 25 mg PO Q6H PRN PRN Reason: Symptoms of alcohol withdrawl Last Admin: 12/28/18 23:05 Dose: 25 mg Enoxaparin Sodium (Lovenox) 40 mg SC DAILY [facility] Last Admin: 12/31/18 10:45 Dose: 40 mg Folic Acid (Folic Acid) 1 mg PO DAILY [facility] Last Admin: 12/31/18 10:45 Dose: 1 mg Meropenem 1 gm/ Sodium (Chloride) 100 mls @ 100 mls/hr IVPB Q8H [facility]; Protocol Last Admin: 01/01/19 01:06 Dose: 100 mls/hr Methadone HCl (Methadone) 5 mg PO Q24H [facility]; Taper Stop: 01/02/19 08:59 Last Admin: 12/31/18 08:03 Dose: 5 mg Mirtazapine (Remeron) 15 mg PO HS [facility] Last Admin: 12/31/18 21:06 Dose: 15 mg Multivitamins (Hexavitamin) 1 tab PO DAILY [facility] Last Admin: 12/31/18 10:45 Dose: 1 tab Pantoprazole Sodium (Protonix Ec Tab) 20 mg PO DAILY [facility] Quetiapine Fumarate (Seroquel) 50 mg PO HS [facility] Last Admin: 12/31/18 21:06 Dose: 50 mg Thiamine HCl (Vitamin B1 Tab) 100 mg PO DAILY [facility] Last Admin: 12/31/18 10:45 Dose: 100 mg Trazodone HCl (Desyrel) 50 mg PO HS PRN PRN Reason: Insomnia Last Admin: 12/30/18 22:08 Dose: 50 mg - Labs Labs: 12/29/18 06:22 12/29/18 06:22 PT 13.6 SECONDS (9.7-12.2) H 12/26/18 19:55 INR 1.2 12/26/18 19:55 APTT 34 SECONDS (21-34) 12/26/18 19:55
--- NOTE | 2019-01-01 07:41 | CP.PCM.PN ---
Subjective - Date & Time of Evaluation Date of Evaluation: 12/31/18 Time of Evaluation: 18:40 - Subjective Subjective: Patient seen and evaluated 'Comfortable No cardiac events C/O reproducible chest pain Physical Exam - Constitutional Appears: Toxic, Older Than Stated Age - Eye Exam Eye Exam: EOMI, PERRL - ENT Exam ENT Exam: Mucous Membranes Dry - Respiratory Exam Respiratory Exam: Clear to Auscultation Bilateral. absent: Rales, Wheezes - Cardiovascular Exam Cardiovascular Exam: Tachycardia, +S1, +S2. absent: Systolic Murmur - GI/Abdominal Exam GI & Abdominal Exam: Normal Bowel Sounds, Soft, Tenderness (RUQ on deep palpation, [place] negative) - Extremities Exam Extremities exam: Positive for: normal capillary refill, pedal pulses present. Negative for: pedal edema - Neurological Exam Neurological exam: Alert (lethargic, responds to name only) - Psychiatric Exam Psychiatric exam: Flat Affect - Skin Skin Exam: Normal Color Assessment & Plan - Assessment and Plan (Free Text) Assessment: Pt is a 58 y/o male with hx of HIV (questionable), Hep C, ETOH abuser, Active Heroine abuser, Liver Cirrhosis, previously incarcerated brought to ER by sister who reports that she found him at her neighbors house shaking and "looked ill" and minimally responsive. She believes he was shooting up heroine. As per EMS, pt was given Narcan and become more alert. On ED arrival he was complaining of abdominal pain and vomiting. Also complaining of cough. Noted to be septic shock, Code Sepsis initiated--hypothermic, WBC 0.7, hypotensive unresponsive to fluids and started on levophed. Most of history obtained through sister and mother who are at bedside. They report that he uses heroine often and drinks alcohol regularly often going into withdrawal if he doesn't drink for a while. Neuro - Improved Cardio - Bradycardia improving GI - Liver Cirrhosis Renal - BUN/Crea stable - Monitor UP Heme - H/H stbale - Platelets 80 Non Cardiac chest pain-Medical management Bradycardia resolving Will monitor Objective - Vital Signs/Intake and Output Vital Signs (last 24 hours): Temp Pulse Resp BP Pulse Ox 97.8 F 53 L 20 135/77 96 12/31/18 23:00 01/01/19 04:24 12/31/18 23:00 12/31/18 23:00 12/31/18 23:00 Intake and Output: 01/01/19 01/01/19 06:59 18:59 Intake Total 820 Output Total 550 Balance 270 - Medications Medications: Current Medications Chlordiazepoxide (Librium) 25 mg PO Q6H PRN PRN Reason: Symptoms of alcohol withdrawl Last Admin: 12/28/18 23:05 Dose: 25 mg Enoxaparin Sodium (Lovenox) 40 mg SC DAILY [facility] Last Admin: 12/31/18 10:45 Dose: 40 mg Folic Acid (Folic Acid) 1 mg PO DAILY [facility] Last Admin: 12/31/18 10:45 Dose: 1 mg Meropenem 1 gm/ Sodium (Chloride) 100 mls @ 100 mls/hr IVPB Q8H [facility]; Protocol Last Admin: 01/01/19 01:06 Dose: 100 mls/hr Methadone HCl (Methadone) 5 mg PO Q24H [facility]; Taper Stop: 01/02/19 08:59 Last Admin: 12/31/18 08:03 Dose: 5 mg Mirtazapine (Remeron) 15 mg PO HS [facility] Last Admin: 12/31/18 21:06 Dose: 15 mg Multivitamins (Hexavitamin) 1 tab PO DAILY [facility] Last Admin: 12/31/18 10:45 Dose: 1 tab Pantoprazole Sodium (Protonix Ec Tab) 20 mg PO DAILY [facility] Quetiapine Fumarate (Seroquel) 50 mg PO HS [facility] Last Admin: 12/31/18 21:06 Dose: 50 mg Thiamine HCl (Vitamin B1 Tab) 100 mg PO DAILY [facility] Last Admin: 12/31/18 10:45 Dose: 100 mg Trazodone HCl (Desyrel) 50 mg PO HS PRN PRN Reason: Insomnia Last Admin: 12/30/18 22:08 Dose: 50 mg - Labs Labs: 12/29/18 06:22 12/29/18 06:22 PT 13.6 SECONDS (9.7-12.2) H 12/26/18 19:55 INR 1.2 12/26/18 19:55 APTT 34 SECONDS (21-34) 12/26/18 19:55
[2019-01-01] MEDS: Enoxaparin 40 mg Syringe SC SCH (09:20)
[2019-01-01] MEDS: Multiple Vitamins Tab PO SCH (09:21)
[2019-01-01] MEDS: Pantoprazole 20 mg EC Tab PO SCH (09:21)
--- NOTE | 2019-01-01 11:02 | PN ---
DATE: 01/01/2019 SUBJECTIVE: The patient is afebrile. He is on antibiotics. He is bradycardic. opiate use. PHYSICAL EXAMINATION: VITAL SIGNS: Blood pressure 135/77, pulse 51, respiratory rate 20, temperature 97.8. LUNGS: Clear. No rales. No rhonchi. CARDIOVASCULAR SYSTEM: S1 and S2, regular. ABDOMEN: Soft. Nontender. Bowel sounds are positive. ASSESSMENT: 1. Gram-negative septicemia due to Serratia marcescens. Repeat cultures are negative. The patient is on antibiotics. 2. Opiate and abuse. PLAN: To continue antibiotics. ID followup. Monitor the patient. Jarett Rodriguez MD
--- NOTE | 2019-01-01 11:07 | CP.PCM.PN ---
<Katie Cano - Last Filed: 01/01/19 16:35> Subjective - Date & Time of Evaluation Date of Evaluation: 01/01/19 Time of Evaluation: 11:07 - Subjective Subjective: Progress note for Dr. Coppola Patient was seen and examined at bedside in no acute distress. Patient reports still having the same chest pain, but says he feels better than yesterday. He has no additional complaints and denies palpitations, sob, n/v, abdominal pain, leg pain, and leg swelling. Objective - Vital Signs/Intake and Output Vital Signs (last 24 hours): Temp Pulse Resp BP Pulse Ox 98 F 53 L 20 127/80 96 01/01/19 08:00 01/01/19 08:00 01/01/19 08:00 01/01/19 08:00 01/01/19 08:00 Intake and Output: 01/01/19 01/01/19 06:59 18:59 Intake Total 820 Output Total 550 Balance 270 - Medications Medications: Current Medications Chlordiazepoxide (Librium) 25 mg PO Q6H PRN PRN Reason: Symptoms of alcohol withdrawl Last Admin: 12/28/18 23:05 Dose: 25 mg Enoxaparin Sodium (Lovenox) 40 mg SC DAILY [facility] Last Admin: 01/01/19 09:20 Dose: 40 mg Folic Acid (Folic Acid) 1 mg PO DAILY [facility] Last Admin: 01/01/19 09:21 Dose: 1 mg Meropenem 1 gm/ Sodium (Chloride) 100 mls @ 100 mls/hr IVPB Q8H [facility]; Protocol Last Admin: 01/01/19 09:20 Dose: 100 mls/hr Methadone HCl (Methadone) 5 mg PO Q24H [facility]; Taper Stop: 01/02/19 08:59 Last Admin: 01/01/19 09:21 Dose: 5 mg Mirtazapine (Remeron) 15 mg PO HS [facility] Last Admin: 12/31/18 21:06 Dose: 15 mg Multivitamins (Hexavitamin) 1 tab PO DAILY [facility] Last Admin: 01/01/19 09:21 Dose: 1 tab Pantoprazole Sodium (Protonix Ec Tab) 20 mg PO DAILY [facility] Last Admin: 01/01/19 09:21 Dose: 20 mg Quetiapine Fumarate (Seroquel) 50 mg PO HS [facility] Last Admin: 12/31/18 21:06 Dose: 50 mg Thiamine HCl (Vitamin B1 Tab) 100 mg PO DAILY [facility] Last Admin: 01/01/19 09:21 Dose: 100 mg Trazodone HCl (Desyrel) 50 mg PO HS PRN PRN Reason: Insomnia Last Admin: 12/30/18 22:08 Dose: 50 mg - Labs Labs: 12/29/18 06:22 12/29/18 06:22 PT 13.6 SECONDS (9.7-12.2) H 12/26/18 19:55 INR 1.2 12/26/18 19:55 APTT 34 SECONDS (21-34) 12/26/18 19:55 - Constitutional Appears: No Acute Distress - Head Exam Head Exam: ATRAUMATIC, NORMAL INSPECTION - Eye Exam Eye Exam: EOMI - ENT Exam ENT Exam: Mucous Membranes Moist - Respiratory Exam Respiratory Exam: Decreased Breath Sounds, NORMAL BREATHING PATTERN. absent: Rales, Rhonchi, Wheezes - Cardiovascular Exam Cardiovascular Exam: Bradycardia, +S1, +S2 - GI/Abdominal Exam GI & Abdominal Exam: Soft, Normal Bowel Sounds. absent: Distended, Firm, Tenderness - Extremities Exam Extremities Exam: Normal Inspection. absent: Pedal Edema, Tenderness - Neurological Exam Neurological Exam: Alert, Awake, Oriented x3 - Psychiatric Exam Psychiatric exam: Normal Affect, Normal Mood - Skin Skin Exam: Dry, Normal Color, Warm Assessment and Plan - Assessment and Plan (Free Text) Plan: 58 y/o male with hx of Hep C, ETOH abuser, Active Heroine abuser, Liver Cirrhosis, previously incarcerated brought to ER by sister who reports that she found him at her neighbors house shaking and "looked ill" and minimally responsive. Cardiology was consulted for bradycardia. Bradycardia - Possibly secondary to medications/drug/polysubstance abuse. - No cardiac events - Bradycardia improving - Will continue to monitor Case discussed with Dr. Abdon Casey, PGY2 <Jason Coppola - Last Filed: 01/02/19 22:41> Objective - Vital Signs/Intake and Output Vital Signs (last 24 hours): Temp Pulse Resp BP Pulse Ox 97.9 F 57 L 20 105/63 98 01/02/19 15:00 01/02/19 16:41 01/02/19 15:00 01/02/19 15:00 01/02/19 15:00 Intake and Output: 01/02/19 01/03/19 18:59 06:59 Intake Total 550 600 Balance 550 600 - Labs Labs: 12/29/18 06:22 01/01/19 14:01 PT 13.6 SECONDS (9.7-12.2) H 12/26/18 19:55 INR 1.2 12/26/18 19:55 APTT 34 SECONDS (21-34) 12/26/18 19:55 Assessment and Plan - Assessment and Plan (Free Text) Plan: Patient seen and evaluated personally by me. Plan of linus d/w the medical esthetician and as documented
[2019-01-01 14:25] LABS: BLOOD UREA NITROGEN 13 mg/dL (9-20); GFR NON-AFRICAN AMERICAN > 60
--- NOTE | 2019-01-01 22:40 | CP.PCM.PN ---
Subjective - Date & Time of Evaluation Date of Evaluation: 01/01/19 Time of Evaluation: 08:00 - Subjective Subjective: dict Objective - Vital Signs/Intake and Output Vital Signs (last 24 hours): Temp Pulse Resp BP Pulse Ox 98.5 F 56 L 20 113/69 98 01/01/19 15:00 01/01/19 20:23 01/01/19 15:00 01/01/19 15:00 01/01/19 15:00 Intake and Output: 01/01/19 01/02/19 18:59 06:59 Intake Total 580 700 Balance 580 700 - Medications Medications: Current Medications Chlordiazepoxide (Librium) 25 mg PO Q6H PRN PRN Reason: Symptoms of alcohol withdrawl Last Admin: 12/28/18 23:05 Dose: 25 mg Enoxaparin Sodium (Lovenox) 40 mg SC DAILY [facility] Last Admin: 01/01/19 09:20 Dose: 40 mg Folic Acid (Folic Acid) 1 mg PO DAILY [facility] Last Admin: 01/01/19 09:21 Dose: 1 mg Meropenem 1 gm/ Sodium (Chloride) 100 mls @ 100 mls/hr IVPB Q8H [facility]; Protocol Last Admin: 01/01/19 16:44 Dose: 100 mls/hr Methadone HCl (Methadone) 5 mg PO Q24H [facility]; Taper Stop: 01/02/19 08:59 Last Admin: 01/01/19 09:21 Dose: 5 mg Mirtazapine (Remeron) 15 mg PO HS [facility] Last Admin: 01/01/19 21:01 Dose: 15 mg Multivitamins (Hexavitamin) 1 tab PO DAILY [facility] Last Admin: 01/01/19 09:21 Dose: 1 tab Pantoprazole Sodium (Protonix Ec Tab) 20 mg PO DAILY [facility] Last Admin: 01/01/19 09:21 Dose: 20 mg Thiamine HCl (Vitamin B1 Tab) 100 mg PO DAILY [facility] Last Admin: 01/01/19 09:21 Dose: 100 mg Trazodone HCl (Desyrel) 50 mg PO HS [facility] Last Admin: 01/01/19 21:01 Dose: 50 mg - Labs Labs: 12/29/18 06:22 01/01/19 14:01 PT 13.6 SECONDS (9.7-12.2) H 12/26/18 19:55 INR 1.2 12/26/18 19:55 APTT 34 SECONDS (21-34) 12/26/18 19:55
[2019-01-02] MEDS: Meropenem 1 GM in Sodium Chloride 0.9% 100 ML IVPB SCH ×3 (01:02→16:53)
--- NOTE | 2019-01-02 01:14 | PN ---
DATE: 01/01/2019 SUBJECTIVE: The patient is afebrile. Discussed with Dr. Hutchinson. The patient continued to be on antibiotics, in subacute rehab. No nausea, vomiting. No fever. PHYSICAL EXAMINATION: VITAL SIGNS: Blood pressure 113/69, pulse 55, respiratory rate 20, temperature 98.5. LUNGS: Clear. No rales. No rhonchi. CARDIOVASCULAR SYSTEM: S1 and S2, regular. ABDOMEN: Soft. Nontender. Bowel sounds are positive. ASSESSMENT: 1. Septicemia. The patient's repeat blood cultures are negative. 2. Opiate dependent. 3. Bradycardia with opiates. PLAN: Continue antibiotics. Monitor the patient. Jarett Rodriguez MD
--- NOTE | 2019-01-02 08:07 | CP.PCM.PN ---
Subjective - Date & Time of Evaluation Date of Evaluation: 01/02/19 Time of Evaluation: 08:06 - Subjective Subjective: Progress note for Dr. Coppola Patient was seen and examined at bedside in no acute distress. Patient states he is feeling better and denies having chest pain, palpitations, sob, nausea, vomiting, abdominal pain, headaches, fevers, dizziness, leg pain and swelling. No events overnight. Objective - Vital Signs/Intake and Output Vital Signs (last 24 hours): Temp Pulse Resp BP Pulse Ox 97.9 F 52 L 20 99/67 L 96 01/01/19 23:55 01/02/19 01:00 01/01/19 23:55 01/01/19 23:55 01/01/19 23:55 Intake and Output: 01/02/19 01/02/19 06:59 18:59 Intake Total 800 Balance 800 - Medications Medications: Current Medications Chlordiazepoxide (Librium) 25 mg PO Q6H PRN PRN Reason: Symptoms of alcohol withdrawl Last Admin: 12/28/18 23:05 Dose: 25 mg Enoxaparin Sodium (Lovenox) 40 mg SC DAILY [facility] Last Admin: 01/01/19 09:20 Dose: 40 mg Folic Acid (Folic Acid) 1 mg PO DAILY [facility] Last Admin: 01/01/19 09:21 Dose: 1 mg Meropenem 1 gm/ Sodium (Chloride) 100 mls @ 100 mls/hr IVPB Q8H [facility]; Protocol Last Admin: 01/02/19 01:02 Dose: 100 mls/hr Methadone HCl (Methadone) 5 mg PO Q24H [facility]; Taper Stop: 01/02/19 08:59 Last Admin: 01/01/19 09:21 Dose: 5 mg Mirtazapine (Remeron) 15 mg PO HS [facility] Last Admin: 01/01/19 21:01 Dose: 15 mg Multivitamins (Hexavitamin) 1 tab PO DAILY [facility] Last Admin: 01/01/19 09:21 Dose: 1 tab Pantoprazole Sodium (Protonix Ec Tab) 20 mg PO DAILY [facility] Last Admin: 01/01/19 09:21 Dose: 20 mg Thiamine HCl (Vitamin B1 Tab) 100 mg PO DAILY [facility] Last Admin: 01/01/19 09:21 Dose: 100 mg Trazodone HCl (Desyrel) 50 mg PO HS [facility] Last Admin: 01/01/19 21:01 Dose: 50 mg - Labs Labs: 12/29/18 06:22 01/01/19 14:01 PT 13.6 SECONDS (9.7-12.2) H 12/26/18 19:55 INR 1.2 12/26/18 19:55 APTT 34 SECONDS (21-34) 12/26/18 19:55 - Additional Findings Additional findings: - Constitutional Appears: No Acute Distress - Head Exam Head Exam: ATRAUMATIC, NORMAL INSPECTION - Eye Exam Eye Exam: EOMI - ENT Exam ENT Exam: Mucous Membranes Moist - Respiratory Exam Respiratory Exam: Decreased Breath Sounds, NORMAL BREATHING PATTERN. absent: Rales, Rhonchi, Wheezes - Cardiovascular Exam Cardiovascular Exam: Bradycardia, +S1, +S2 - GI/Abdominal Exam GI & Abdominal Exam: Soft, Normal Bowel Sounds. absent: Distended, Firm, Tenderness - Extremities Exam Extremities Exam: Normal Inspection. absent: Pedal Edema, Tenderness - Neurological Exam Neurological Exam: Alert, Awake, Oriented x3 - Psychiatric Exam Psychiatric exam: Normal Affect, Normal Mood - Skin Skin Exam: Dry, Normal Color, Warm Assessment and Plan - Assessment and Plan (Free Text) Plan: 58 y/o male with hx of Hep C, ETOH abuser, Active Heroine abuser, Liver Cirrhosis, previously incarcerated brought to ER by sister who reports that she found him at her neighbors house shaking and "looked ill" and minimally responsive. Cardiology was consulted for bradycardia. Bradycardia - Possibly secondary to medications/drug/polysubstance abuse. - No cardiac events - Bradycardia improving - Will continue to monitor Case discussed with Dr. bAdon Casey, PGY2
[2019-01-02] MEDS: Pantoprazole 20 mg EC Tab PO SCH (10:13)
[2019-01-02] MEDS: Enoxaparin 40 mg Syringe SC SCH (10:13)
[2019-01-02] MEDS: Multiple Vitamins Tab PO SCH (10:13)
--- NOTE | 2019-01-02 14:34 | CP.PCM.PN ---
Subjective - Date & Time of Evaluation Date of Evaluation: 01/02/19 Time of Evaluation: 08:00 - Subjective Subjective: seen and examined on rounds no new complaints IV rx in progress labs reviewed orders signed Objective - Vital Signs/Intake and Output Vital Signs (last 24 hours): Temp Pulse Resp BP Pulse Ox 98.1 F 92 H 20 114/71 95 01/02/19 07:00 01/02/19 08:15 01/02/19 07:00 01/02/19 07:00 01/02/19 07:00 Intake and Output: 01/02/19 01/02/19 06:59 18:59 Intake Total 800 Balance 800 - Medications Medications: Current Medications Chlordiazepoxide (Librium) 25 mg PO Q6H PRN PRN Reason: Symptoms of alcohol withdrawl Last Admin: 12/28/18 23:05 Dose: 25 mg Enoxaparin Sodium (Lovenox) 40 mg SC DAILY [facility] Last Admin: 01/02/19 10:13 Dose: 40 mg Folic Acid (Folic Acid) 1 mg PO DAILY [facility] Last Admin: 01/02/19 10:13 Dose: 1 mg Meropenem 1 gm/ Sodium (Chloride) 100 mls @ 100 mls/hr IVPB Q8H [facility]; Protocol Last Admin: 01/02/19 10:42 Dose: 100 mls/hr Mirtazapine (Remeron) 15 mg PO HS [facility] Last Admin: 01/01/19 21:01 Dose: 15 mg Multivitamins (Hexavitamin) 1 tab PO DAILY [facility] Last Admin: 01/02/19 10:13 Dose: 1 tab Pantoprazole Sodium (Protonix Ec Tab) 20 mg PO DAILY [facility] Last Admin: 01/02/19 10:13 Dose: 20 mg Thiamine HCl (Vitamin B1 Tab) 100 mg PO DAILY [facility] Last Admin: 01/02/19 10:13 Dose: 100 mg Trazodone HCl (Desyrel) 50 mg PO HS [facility] Last Admin: 01/01/19 21:01 Dose: 50 mg - Labs Labs: 12/29/18 06:22 01/01/19 14:01 PT 13.6 SECONDS (9.7-12.2) H 12/26/18 19:55 INR 1.2 12/26/18 19:55 APTT 34 SECONDS (21-34) 12/26/18 19:55 - Constitutional Appears: Non-toxic, Chronically Ill - Head Exam Head Exam: ATRAUMATIC, NORMAL INSPECTION, NORMOCEPHALIC - Eye Exam Eye Exam: EOMI, Normal appearance, PERRL Pupil Exam: NORMAL ACCOMODATION, PERRL - ENT Exam ENT Exam: Mucous Membranes Moist, Normal Exam - Neck Exam Neck Exam: Full ROM, Normal Inspection. absent: Lymphadenopathy - Respiratory Exam Respiratory Exam: Clear to Ausculation Bilateral, NORMAL BREATHING PATTERN - Cardiovascular Exam Cardiovascular Exam: REGULAR RHYTHM, +S1, +S2. absent: Murmur - GI/Abdominal Exam GI & Abdominal Exam: Soft, Normal Bowel Sounds. absent: Tenderness - Rectal Exam Rectal Exam: Deferred - Extremities Exam Extremities Exam: Full ROM, Normal Capillary Refill, Normal Inspection. absent: Joint Swelling, Pedal Edema - Back Exam Back Exam: NORMAL INSPECTION - Neurological Exam Neurological Exam: Alert, Awake, CN II-XII Intact, Normal Gait, Oriented x3 - Psychiatric Exam Psychiatric exam: Normal Affect, Normal Mood - Skin Skin Exam: Dry, Intact, Normal Color, Warm Assessment and Plan (1) Opioid abuse Status: Acute (2) Sepsis Status: Acute - Assessment and Plan (Free Text) Assessment: c/o low back pain will obtain CT LS spine
[2019-01-02 16:27] VITALS: PULSE 57
[2019-01-02 16:28] VITALS: BP 105/63; TEMP 97.9; O2SAT 98
--- NOTE | 2019-01-02 19:47 | CP.PCM.CON ---
History of Present Illness - History of Present Illness History of Present Illness: Electrophysiology consult Dr. Coppola has asked me to see this patient with bradycardia. Patient was discharged prior to being seen. No consult performed Past Patient History - Infectious Disease Hx of Infectious Diseases: None - Past Social History Smoking Status: Heavy Smoker > 10 Cigarettes Daily - CARDIAC Hx Hypertension: No - PULMONARY Hx Tuberculosis: No - NEUROLOGICAL Hx Seizures: No - HEMATOLOGICAL/ONCOLOGICAL Hx Human Immunodeficiency Virus (HIV): No - MUSCULOSKELETAL/RHEUMATOLOGICAL Hx Falls: No - GENITOURINARY/GYNECOLOGICAL Hx Sexually Transmitted Disorders: No - PSYCHIATRIC Hx Substance Use: Yes - SURGICAL HISTORY Hx Surgeries: Yes Other/Comment: L eye - ANESTHESIA Hx Anesthesia: No Hx Anesthesia Reactions: No Has any member of the family had a problem w/ anesthesia?: No (as per patient's mother) Meds Home Medications: Home Medication List Medication Instructions Recorded Confirmed Type Mirtazapine [Remeron] 15 mg PO HS 30 Days #30 tab 01/02/19 Rx Multivitamins [Hexavitamin] 1 tab PO DAILY 30 Days #30 tab 01/02/19 Rx Pantoprazole [Protonix EC Tab] 20 mg PO DAILY #30 ect 01/02/19 Rx Thiamine [Vitamin B1 Tab] 100 mg PO DAILY tab 01/02/19 Rx Allergies/Adverse Reactions: Allergies Allergy/AdvReac Type Severity Reaction Status Date / Time No Known Allergies Allergy Verified 12/26/18 11:44 - Medications Medications: Current Medications Chlordiazepoxide (Librium) 25 mg PO Q6H PRN PRN Reason: Symptoms of alcohol withdrawl Last Admin: 12/28/18 23:05 Dose: 25 mg Enoxaparin Sodium (Lovenox) 40 mg SC DAILY [facility] Last Admin: 01/02/19 10:13 Dose: 40 mg Folic Acid (Folic Acid) 1 mg PO DAILY [facility] Last Admin: 01/02/19 10:13 Dose: 1 mg Meropenem 1 gm/ Sodium (Chloride) 100 mls @ 100 mls/hr IVPB Q8H [facility]; Protocol Last Admin: 01/02/19 16:53 Dose: 100 mls/hr Mirtazapine (Remeron) 15 mg PO HS [facility] Last Admin: 01/01/19 21:01 Dose: 15 mg Multivitamins (Hexavitamin) 1 tab PO DAILY [facility] Last Admin: 01/02/19 10:13 Dose: 1 tab Pantoprazole Sodium (Protonix Ec Tab) 20 mg PO DAILY [facility] Last Admin: 01/02/19 10:13 Dose: 20 mg Thiamine HCl (Vitamin B1 Tab) 100 mg PO DAILY [facility] Last Admin: 01/02/19 10:13 Dose: 100 mg Trazodone HCl (Desyrel) 50 mg PO HS [facility] Last Admin: 01/01/19 21:01 Dose: 50 mg Results - Vital Signs Recent Vital Signs: Last Vital Signs Temp 97.9 F 01/02/19 15:00 Pulse 57 L 01/02/19 16:41 Resp 20 01/02/19 15:00 BP 105/63 01/02/19 15:00 Pulse Ox 98 01/02/19 15:00 - Labs Result Diagrams: 12/29/18 06:22 01/01/19 14:01
--- NOTE | 2019-01-02 22:58 | CP.PCM.DIS ---
Provider - Provider Date of Admission: 12/26/18 14:55 Attending physician: Jarett Rodriguez MD Consults: 12/26/18 19:00 Infectious Disease Consult Routine Comment: Consulting Provider: Raymond Hutchinson Consulting Physician: Raymond Hutchinson Reason for Consult: neutropenic fever 12/28/18 07:48 Psychiatry Consult Routine Comment: Consulting Provider: Donny Rodríguez Consulting Physician: Donny Rodríguez Reason for Consult: detox 12/29/18 18:27 Cardiology Consult Routine Comment: bradycardia Consulting Provider: Jason Coppola Consulting Physician: Jason Coppola Reason for Consult: bradycardia 01/02/19 10:54 Cardiology Consult Routine Comment: Consulting Provider: Gerry Klein Consulting Physician: Gerry Klein Reason for Consult: bradycardia Time Spent in preparation of Discharge (in minutes): 30 Hospital Course - Lab Results Lab Results: Micro Results 12/29/18 15:33 Blood-Venous Blood Culture - Preliminary NO GROWTH AFTER 4 DAYS 12/29/18 17:38 Nose MRSA Culture - Final MRSA NOT DETECTED 12/26/18 12:57 Blood Blood Culture - Final Serratia Marcescens 12/26/18 12:57 Blood Gram Stain - Final 12/27/18 16:13 Nose MRSA Culture (Admit) - Final MRSA NOT DETECTED 12/26/18 12:52 Urine,Catheterized Urine Culture - Final 10-50,000 CFU/ML. MULTIPLE SPECIES. PROBABLE CONTAMINATION. 12/26/18 13:03 Blood Blood Culture - Preliminary Gram Negative Masoud 12/26/18 13:03 Blood Gram Stain - Final Most Recent Lab Values WBC 9.2 K/uL (4.8-10.8) 12/29/18 06:22 RBC 4.72 Mil/uL (4.40-5.90) 12/29/18 06:22 Hgb 14.4 g/dL (12.0-18.0) 12/29/18 06:22 Hct 42.9 % (35.0-51.0) 12/29/18 06:22 MCV 90.9 fL (80.0-94.0) 12/29/18 06:22 MCH 30.4 pg (27.0-31.0) 12/29/18 06:22 MCHC 33.5 g/dL (33.0-37.0) 12/29/18 06:22 RDW 15.3 % (11.5-14.5) H 12/29/18 06:22 Plt Count 74 K/uL (130-400) L 12/29/18 06:22 MPV 9.3 fL (7.2-11.7) 12/29/18 06:22 Neut % (Auto) 83.2 % (50.0-75.0) H 12/29/18 06:22 Lymph % (Auto) 10.3 % (20.0-40.0) L 12/29/18 06:22 [place] % (Auto) 5.9 % (0.0-10.0) 12/29/18 06:22 Eos % (Auto) 0.5 % (0.0-4.0) 12/29/18 06:22 Baso % (Auto) 0.1 % (0.0-2.0) 12/29/18 06:22 Neut # (Auto) 7.7 K/uL (1.8-7.0) H 12/29/18 06:22 Lymph # (Auto) 0.9 K/uL (1.0-4.3) L 12/29/18 06:22 [place] # (Auto) 0.5 K/uL (0.0-0.8) 12/29/18 06:22 Eos # (Auto) 0.0 K/uL (0.0-0.7) 12/29/18 06:22 Baso # (Auto) 0.0 K/uL (0.0-0.2) 12/29/18 06:22 Neutrophils % (Manual) 85 % (50-75) H 12/28/18 13:26 Band Neutrophils % 2 % (0-2) 12/28/18 13:26 Lymphocytes % (Manual) 5 % (20-40) L 12/28/18 13:26 Monocytes % (Manual) 7 % (0-10) 12/28/18 13:26 Eosinophils % (Manual) 1 % (0-4) 12/28/18 13:26 Differential Comment 12/26/18 12:30 Toxic Granulation Present 12/28/18 06:18 Platelet Estimate Decreased (NORMAL) L 12/28/18 13:26 Large Platelets Present 12/27/18 06:23 Polychromasia Slight 12/28/18 06:18 Hypochromasia (manual) Slight 12/28/18 06:18 Anisocytosis (manual) Slight 12/28/18 13:26 Smear Path Review 12/26/18 12:30 PT 13.6 SECONDS (9.7-12.2) H 12/26/18 19:55 INR 1.2 12/26/18 19:55 APTT 34 SECONDS (21-34) 12/26/18 19:55 D-Dimer, Quantitative 4103 ng/mlDDU (0-243) H 12/26/18 13:41 Puncture Site Rra 12/26/18 20:05 pCO2 34 mm/Hg (35-45) L 12/26/18 20:05 pO2 103 mm/Hg (80-100) H 12/26/18 20:05 HCO3 20.7 mmol/L (21-28) L 12/26/18 20:05 ABG pH 7.36 (7.35-7.45) 12/26/18 20:05 ABG Total CO2 20.2 mmol/L (22-28) L 12/26/18 20:05 ABG O2 Saturation 99.1 % (95-98) H 12/26/18 20:05 ABG Base Excess -5.4 mmol/L (-2.0-3.0) L 12/26/18 20:05 Sandor Test Pos 12/26/18 20:05 ABG Potassium 3.3 mmol/L (3.6-5.2) L 12/26/18 20:05 VBG pH 7.32 (7.32-7.43) 12/26/18 15:20 VBG pCO2 40 mmHg (40-60) 12/26/18 15:20 VBG HCO3 20.6 mmol/L 12/26/18 15:20 VBG Total CO2 21.8 mmol/L (22-28) L 12/26/18 15:20 VBG O2 Sat (Calc) 91.1 % (40-65) H 12/26/18 15:20 VBG Base Excess -5.2 mmol/L (0.0-2.0) L 12/26/18 15:20 VBG Potassium 2.7 mmol/L (3.6-5.2) L 12/26/18 15:20 A-a O2 Difference 83.0 mm/Hg 12/26/18 20:05 Respiratory Index 0.8 12/26/18 20:05 Sodium 136.0 mmol/l (132-148) 12/26/18 20:05 Chloride 105.0 mmol/L (98-107) 12/26/18 20:05 Glucose 117 mg/dl (75-110) H 12/26/18 20:05 Lactate 2.2 mmol/L (0.7-2.1) H 12/26/18 20:05 Liter Flow 3.0 12/26/18 20:05 FiO2 32.0 % 12/26/18 20:05 Sodium 134 mmol/L (132-148) 01/01/19 14:01 Potassium 4.2 mmol/L (3.6-5.2) 01/01/19 14:01 Chloride 103 mmol/L (98-107) 01/01/19 14:01 Carbon Dioxide 24 mmol/L (22-30) 01/01/19 14:01 Anion Gap 11 (10-20) 01/01/19 14:01 BUN 13 mg/dL (9-20) 01/01/19 14:01 Creatinine 0.7 mg/dL (0.8-1.5) L 01/01/19 14:01 Est GFR ( Amer) > 60 01/01/19 14:01 Est GFR (Non-Af Amer) > 60 01/01/19 14:01 Random Glucose 92 mg/dL (75-110) 01/01/19 14:01 Calcium 9.0 mg/dl (8.6-10.4) 01/01/19 14:01 Phosphorus 2.8 mg/dL (2.5-4.5) 12/29/18 06:22 Magnesium 1.9 mg/dL (1.6-2.3) 12/29/18 06:22 Total Bilirubin 0.8 mg/dL (0.2-1.3) 12/29/18 06:22 AST 44 U/L (17-59) 12/29/18 06:22 ALT 39 U/L (21-72) 12/29/18 06:22 Alkaline Phosphatase 116 U/L (38-126) 12/29/18 06:22 Ammonia < 9 umol/L (9-33) L 12/26/18 19:55 Total Creatine Kinase 82 U/L (55-170) 12/27/18 06:24 Troponin I 0.1160 ng/mL (0.00-0.120) 12/26/18 12:30 NT-Pro-B Natriuret Pep 77.6 pg/mL (0-900) 12/26/18 12:30 Total Protein 6.2 g/dL (6.3-8.3) L 12/29/18 06:22 Albumin 3.0 g/dL (3.5-5.0) L 12/29/18 06:22 Globulin 3.2 gm/dL (2.2-3.9) 12/29/18 06:22 Albumin/Globulin Ratio 0.9 (1.0-2.1) L 12/29/18 06:22 TSH 3rd Generation 0.17 mIU/L (0.46-4.68) L 12/28/18 06:18 Arterial Blood Potassium 3.3 mmol/L (3.6-5.2) L 12/26/18 20:05 Venous Blood Potassium 2.7 mmol/L (3.6-5.2) L 12/26/18 15:20 Urine Color Yellow (YELLOW) 12/26/18 12:52 Urine Clarity Clear (Clear) 12/26/18 12:52 Urine pH 6.0 (5.0-8.0) 12/26/18 12:52 Ur Specific [place] 1.012 (1.003-1.030) 12/26/18 12:52 Urine Protein Negative mg/dL (NEGATIVE) 12/26/18 12:52 Urine Glucose (UA) Normal mg/dL (Normal) 12/26/18 12:52 Urine Ketones Negative mg/dL (NEGATIVE) 12/26/18 12:52 Urine Blood 1+ (NEGATIVE) H 12/26/18 12:52 Urine Nitrate Negative (NEGATIVE) 12/26/18 12:52 Urine Bilirubin Negative (NEGATIVE) 12/26/18 12:52 Urine Urobilinogen 4.0 mg/dL (0.2-1.0) 12/26/18 12:52 Ur Leukocyte Esterase 1+ Dayron/uL (Negative) H 12/26/18 12:52 Urine WBC (Auto) 8 /hpf (0-5) H 12/26/18 12:52 Urine RBC (Auto) 7 /hpf (0-3) H 12/26/18 12:52 Ur Squamous Epith Cells 1 /hpf (0-5) 12/26/18 12:52 Urine Bacteria Occ (<OCC) H 12/26/18 12:52 Urine Opiates Screen Positive (NEGATIVE) H 12/26/18 12:52 Urine Methadone Screen Negative (NEGATIVE) 12/26/18 12:52 Ur Barbiturates Screen Negative (NEGATIVE) 12/26/18 12:52 Ur Phencyclidine Scrn Negative (NEGATIVE) 12/26/18 12:52 Ur Amphetamines Screen Negative (NEGATIVE) 12/26/18 12:52 U Benzodiazepines Scrn Positive (NEGATIVE) 12/26/18 12:52 U Oth Cocaine Metabols Negative (NEGATIVE) 12/26/18 12:52 U Cannabinoids Screen Positive (NEGATIVE) H 12/26/18 12:52 Alcohol, Quantitative < 10 mg/dl (0-10) 12/26/18 12:30 Absolute Lymphs (Flow) 134 Cells/mcL (850-3900) L 12/26/18 19:55 % CD4 Cells 23 Percent (30-61) L 12/26/18 19:55 Absolute CD4 Count 31 Cells/mcL (490-1740) L 12/26/18 19:55 T-Help/Suppress Ratio 0.57 Ratio (0.86-5.00) L 12/26/18 19:55 % CD8 Cells 40 Percent (12-42) 12/26/18 19:55 Absolute CD8 Count 54 Cells/mcL (180-1170) L 12/26/18 19:55 T-Lymph Analys Comment See note 12/26/18 19:55 Hepatitis A IgM Ab Negative (NEGATIVE) 12/26/18 19:55 Hep Bs Antigen Negative (NEGATIVE) 12/26/18 19:55 Hep B Core IgM Ab Negative (NEGATIVE) 12/26/18 19:55 Hepatitis C Antibody Reactive (NEGATIVE) 12/26/18 19:55 HIV 1&2 Ag/Ab, 4th Gen Nonreactive (Nonreactive) 12/26/18 19:55 Discharge Exam - Head Exam Head Exam: ATRAUMATIC, NORMAL INSPECTION, NORMOCEPHALIC Discharge Plan - Discharge Medications Prescriptions: Multivitamins [Hexavitamin] 1 tab PO DAILY 30 Days #30 tab Pantoprazole [Protonix EC Tab] 20 mg PO DAILY #30 ect Mirtazapine [Remeron] 15 mg PO HS 30 Days #30 tab - Follow Up Plan Condition: GOOD Disposition: HOME/ ROUTINE Instructions: Sepsis, Adult (DC), Mirtazapine, Pantoprazole, Opioid Use Disorder Additional Instructions: Follow up with primary medical doctor in one week. Return to emergency room for any new or worsening symptoms. Referrals: Pedro Luis Logan MD [Staff Provider] - Donny Rodríguez MD [Staff Provider] - Jason Coppola MD [Staff Provider] - Jarett Rodriguez MD [Staff Provider] - Raymond Hutchinson MD [Staff Provider] -
--- NOTE | 2019-01-03 03:15 | DS ---
DISCHARGE DIAGNOSES: 1. Serratia marcescens septicemia. 2. Alcoholism. 3. Drug rash. 4. Drug abuse, alcohol abuse. HISTORY OF PRESENT ILLNESS AND HOSPITAL COURSE: This is a 58-year-old male with history of opioid dependence, alcoholism. He came in because of generalized weakness, found to have sepsis with Serratia. He was given intravenous antibiotic, later on switched over to oral Cipro. He agrees to take his medication. He is feeling better. He is for discharge. Condition upon discharge is stable. He was seen by Psychiatry. Psychiatry treated the patient. The patient will continue on medications. Jarett Rodriguez MD
[2019-01-03 10:40] LABS: % CD4 (T HELPER CELL) 38 Percent (30-61); % CD8 (SUPPRESSOR T CELL) 40 Percent (12-42); ABSOLUTE CD4 CELLS 424 Cells/mcL (490-1740); ABSOLUTE CD8 CELLS 451 Cells/mcL (180-1170); ABSOLUTE LYMPHOCYTES 1116 Cells/mcL (850-3900); HELPER/SUPPRESSOR RATIO 0.94 Ratio (0.86-5.00)
--- NOTE | 2019-01-03 17:06 | CT ---
Date of service: 01/02/2019 PROCEDURE: CT Lumbar Spine without contrast HISTORY: low back pain, bacteremia r/o fx r/o OM COMPARISON: None available. TECHNIQUE: Axial computed tomography images were obtained of the lumbar spine without the use of intravenous contrast. Coronal and sagittal reformatted images were created and reviewed. Radiation dose: Total exam DLP = 1003.85 mGy-cm. This CT exam was performed using one or more of the following dose reduction techniques: Automated exposure control, adjustment of the mA and/or kV according to patient size, and/or use of iterative reconstruction technique. FINDINGS: VERTEBRAE: Vertebral bodies are maintained in height. Normal alignment is maintained. There is no lytic or blastic osseous lesion. DISCS/SPINAL CANAL/NEURAL FORAMINA: L1-2: Mild disc bulge. No spinal or foraminal stenosis. L2-3: Mild disc bulge. No spinal or foraminal stenosis. L3-4: Mild disc bulge. No spinal or foraminal stenosis. L4-5: Mild disc bulge. No spinal or foraminal stenosis. L5-S1: Small midline disc herniation. Gas within herniated disc consistent with vacuum disc phenomenon. No central spinal canal stenosis. Moderate to severe bilateral neural foraminal stenosis. Loss in height of the intervertebral disc space consistent with degenerative disc disease. PARASPINAL SOFT TISSUES: Unremarkable. OTHER FINDINGS: None. IMPRESSION: Small midline disc herniation at L5-S1 with degenerative disc disease and moderate to severe bilateral neural foraminal stenosis. Mild disc bulges at all of the remaining examined intervertebral disc spaces. The preliminary findings for this examination were reported by [facility] at 8:03 p.m. on 01/02/2019. There is concurrence of this report with the preliminary findings.
== END 2019-01-02 20:02 | disposition home or self-care (01) | DRG 584 ==
LOC: C.ER 11:30 → C.9I 14:55 → C.5S 12-29 16:19
PROVIDERS: ADMIT Internal Medicine; ATTEND Internal Medicine
DX: A41.53 Sepsis due to Serratia (principal); R65.21 Severe sepsis with septic shock; D61.818 Other pancytopenia; E87.6 Hypokalemia; F10.239 Alcohol dependence with withdrawal, unspecified; F11.23 Opioid dependence with withdrawal; N39.0 Urinary tract infection, site not specified; B19.20 Unspecified viral hepatitis C without hepatic coma; K70.31 Alcoholic cirrhosis of liver with ascites; D69.59 Other secondary thrombocytopenia; J98.11 Atelectasis; E86.0 Dehydration; F32.9 Major depressive disorder, single episode, unspecified; F12.10 Cannabis abuse, uncomplicated; I10 Essential (primary) hypertension; L27.0 Generalized skin eruption due to drugs and medicaments taken internally; Z59.0 Homelessness; F17.210 Nicotine dependence, cigarettes, uncomplicated; Z91.14 Patient's other noncompliance with medication regimen; T50.901A Poisoning by unspecified drugs, medicaments and biological substances, accidental (unintentional), initial encounter; D73.1 Hypersplenism; J81.1 Chronic pulmonary edema; F19.10 Other psychoactive substance abuse, uncomplicated